=== PATIENT | male | born 1930 | race Caucasian/White ===

== ENCOUNTER 2017-03-21 10:48 | Inpatient (IN) ==
[2017-03-21 11:48] LABS: MANUAL DIFF NEEDED? NO
[2017-03-21 11:55] LABS: BASO% 0.2 % (0.0-0.8); EOS# 0.02 X1000 (0.0-0.7); EOS% 0.2 % (0.0-10.0); HEMATOCRIT 41.5 % (42.0-52.0); HEMOGLOBIN 13.5 g/dL (14.0-18.0); IMM GRAN# 0.02 X1000 (0.0-0.04); IMM GRAN% 0.2 % (0.0-0.5); LYMPH# 1.01 X1000 (1.2-3.4); LYMPH% 8.8 % (20.5-51.1); MCHC 32.5 g/dL (33-37); MCV 95.2 FL (81-99); MONO# 1.04 X1000 (0.11-0.59); MONO% 9.1 % (1.7-9.3); NEUT% 81.5 % (42.2-75.2); PLT 129 X1000 (130-400); RBC 4.36 XMIL (4.7-6.1)
--- NOTE | 2017-03-21 12:10 | Diag Imaging Result Doc PS360 ---
CT HEAD W/O CONTRAST - 03/21/2017 INDICATION: ams TECHNIQUE: A CT dose reduction protocol was used. COMPARISON: 06/03/2016 FINDINGS: The ventricles and sulci are normal in size and contour. No intracranial mass or hemorrhage. Stable mild periventricular white matter hypodensities compatible with chronic microvascular ischemia most notably at the right lateral ventricle frontal horn. The skull is intact. There is significant chronic sinusitis of the maxillary and ethmoid sinuses. IMPRESSION: No change from prior. No acute intracranial abnormality. Electronically signed by Ciro Knight 03/21/2017 12:07 PM
[2017-03-21 12:12] LABS: AGAP 12; ALBUMIN 3.8 g/dL (3.5-5.0); ALKALINE PHOSPHATASE 46 U/L (32-122); BUN 12 mg/dL (8-22); CALCIUM 9.3 mg/dL (8.8-10.2); CHLORIDE 99 mmol/L (98-107); CK PROFILE 54 U/L (24-204); COSMO 276; GOT 22 U/L (10-34); GPT 17 U/L (10-44); POTASSIUM 4.4 mmol/L (3.5-5.1); SODIUM 138 mmol/L (136-145); TCO2 27 mmol/L (25-35); TOTAL BILIRUBIN 0.66 mg/dL (0.20-1.00); TOTAL PROTEIN 6.8 g/dL (6.3-8.3)
--- NOTE | 2017-03-21 12:18 | Diag Imaging Result Doc PS360 ---
EXAM: CHEST-2 VIEWS INDICATION: cough TECHNIQUE: 3 views COMPARISON: 06/02/2016 FINDINGS: The lungs are grossly clear. There is no discrete pleural fluid collection or pneumothorax. The heart is somewhat prominent but stable. There is a stable left-sided pacemaker. Central vasculature is unremarkable. IMPRESSION: Stable cardiomegaly. No definite acute chest pathology by plain radiograph. Electronically signed by Jamar Hernandez 03/21/2017 12:16 PM
[2017-03-21] MEDS ORDERED: TYLENOL PO ONE (12:28)
[2017-03-21] MEDS ORDERED: NS 1,000 ML IV ONE (12:29)
[2017-03-21 13:11] LABS: URINE CULTURE NEEDED? NO; URINE MICRO REVIEW NEEDED? NO; URINE SOURCE CLEAN CATCH
[2017-03-21 13:16] LABS: BILIRUBIN URINE NEGATIVE (NEGATIVE); BLOOD URINE NEGATIVE (NEGATIVE); COLOR YELLOW; GLUCOSE URINE NEGATIVE (NEGATIVE); LEUKOCYTES URINE NEGATIVE (NEGATIVE); NITRITE URINE NEGATIVE (NEGATIVE); PROTEIN URINE NEGATIVE (NEGATIVE); SP GRAVITY URINE 1.008; TURBIDITY URINE CLEAR (CLEAR); UROBILINOGEN URINE NORMAL (NORMAL)
[2017-03-21 13:18] LABS: UR EPITHELIAL CELLS <10 /HPF (<10); URINE BACTERIA NEGATIVE /HPF; URINE RBC <10 /HPF (<10); URINE WBC <10 /HPF (<10)
[2017-03-21] MEDS ORDERED: LASIX IV ONE (14:02)
--- NOTE | 2017-03-21 14:08 | EKG Report ---
Test Performed on : 03/21/2017 10:59:17 AM Test Reason : ED. Not ordered in [place] Blood Pressure : / mmHG Vent. Rate : 096 BPM Atrial Rate : 105 BPM P-R Int : 000 ms QRS Dur : 084 ms QT Int : 326 ms P-R-T Axes : 000 -03 -18 degrees QTc Int : 411 ms Atrial fibrillation. Low voltage QRS Septal infarct , age undetermined Abnormal ECG When compared with ECG of 04-JUN-2016 07:28, Atrial fibrillation. has replaced Electronic ventricular pacemaker Unconfirmed Result
[2017-03-21 15:00] LABS: ALLEN TEST YES; BE 3.9 mmoll (-3.0-3.0); BLOOD TYPE ARTERIAL; DRAW SITE R RADIAL; METHB 1.7 % (0.0-1.5); MODALITY CANNULA; O2(CT) 17.2 mL/dL (15.0-23.0); PCO2(98.6) 38 mmHg (35-45); PO2(98.6) 82 mmHg (60-100); SAMPLE BLOOD; SAO2 97.8 % (95.0-100.0); THB 12.9 g/dL (11.5-17.4); pH(98.6) 7.47 (7.35-7.45)
[2017-03-21] MEDS ORDERED: ROCEPHIN 1 GM in NS 50 ML IV ONE (15:50)
[2017-03-21] MEDS ORDERED: XANAX PO PRN (16:20)
[2017-03-21] MEDS ORDERED: TYLENOL PO PRN (16:20)
[2017-03-21] MEDS ORDERED: ZOFRAN IV PRN (16:20)
[2017-03-21] MEDS: NEURONTIN PO SCH (17:43)
[2017-03-21] MEDS: ELIQUIS PO SCH (21:22)
[2017-03-21] MEDS: ZOCOR PO SCH (21:22)
--- NOTE | 2017-03-22 06:25 | EKG Report ---
Test Performed on : 03/22/2017 05:24:27 AM Test Reason : Heart Failure Admission Blood Pressure : / mmHG Vent. Rate : 082 BPM Atrial Rate : 081 BPM P-R Int : 000 ms QRS Dur : 092 ms QT Int : 394 ms P-R-T Axes : 000 -21 -14 degrees QTc Int : 460 ms Atrial fibrillation. Low voltage QRS Nonspecific T wave abnormality Prolonged QT Abnormal ECG When compared with ECG of 21-MAR-2017 10:59, (Unconfirmed) Criteria for Septal infarct are no longer present T wave inversion less evident in Anterior leads Confirmed by Esperanza HDZ, Nicko Vazquez ([id number]) on 03/22/2017 6:42:13 AM
[2017-03-22 07:00] LABS: MANUAL DIFF NEEDED? NO
[2017-03-22 07:04] LABS: BASO% 0.2 % (0.0-0.8); EOS% 1.2 % (0.0-10.0); HEMATOCRIT 41.8 % (42.0-52.0); HEMOGLOBIN 13.6 g/dL (14.0-18.0); LYMPH% 14.4 % (20.5-51.1); MCH 31.1 PG (27-31); MCHC 32.5 g/dL (33-37); MCV 95.4 FL (81-99); MONO# 0.85 X1000 (0.11-0.59); MONO% 10.2 % (1.7-9.3); MPV 11.2 FL (7.4-10.4); PLT 117 X1000 (130-400); RBC 4.38 XMIL (4.7-6.1)
[2017-03-22 07:29] LABS: AGAP 10; BUN 12 mg/dL (8-22); CALCIUM 9.5 mg/dL (8.8-10.2); CHLORIDE 99 mmol/L (98-107); COSMO 277; DIGOXIN < 0.2 ng/mL (0.9-2.0); MAGNESIUM 1.8 mg/dL (1.5-2.7); POTASSIUM 3.8 mmol/L (3.5-5.1); SODIUM 139 mmol/L (136-145); TCO2 30 mmol/L (25-35)
[2017-03-22 07:47] LABS: FREE T4 1.21 ng/dL (0.93-1.70); PSA SCREEN 0.54 ng/mL (0.00-6.22)
[2017-03-22] MEDS: NEURONTIN PO SCH (08:25)
[2017-03-22] MEDS: LANOXIN PO SCH (08:25)
[2017-03-22] MEDS: HYDROCHLOROTHIAZIDE PO SCH (08:25)
[2017-03-22] MEDS: UROXATRAL PO SCH (08:25)
[2017-03-22] MEDS: ELIQUIS PO SCH ×2 (08:25→22:29)
[2017-03-22] MEDS: CARDIZEM CD PO SCH (08:25)
[2017-03-22] MEDS ORDERED: ROCEPHIN 1 GM in NS 50 ML IV SCH (16:00)
[2017-03-22] MEDS: ZOCOR PO SCH (22:29)
[2017-03-23] MEDS: UROXATRAL PO SCH (09:21)
[2017-03-23] MEDS: CARDIZEM CD PO SCH (09:21)
[2017-03-23] MEDS: LANOXIN PO SCH (09:21)
[2017-03-23] MEDS: ELIQUIS PO SCH (09:21)
[2017-03-23] MEDS: HYDROCHLOROTHIAZIDE PO SCH (09:21)
[2017-03-23 15:12] VITALS: BP 155/83
== END 2017-03-23 15:50 | disposition home or self-care (01) ==
LOC: ED 10:48 → 3N 16:08
PROVIDERS: ATTEND Emergency Medicine

== ENCOUNTER 2019-01-26 07:13 | Inpatient (IN) ==
[2019-01-26] MEDS ORDERED: ASPIRIN PO ONE (07:40)
[2019-01-26] MEDS ORDERED: LASIX IV ONE ×2 (07:44→14:00)
[2019-01-26] MEDS ORDERED: DUONEB (A & A) INH ONE (07:44)
--- NOTE | 2019-01-26 07:47 | EKG Report ---
Test Performed on : 01/26/2019 07:25:07 AM Test Reason : sob Blood Pressure : / mmHG Vent. Rate : 088 BPM Atrial Rate : 057 BPM P-R Int : 000 ms QRS Dur : 092 ms QT Int : 356 ms P-R-T Axes : 000 -38 007 degrees QTc Int : 430 ms Atrial fibrillation. Left axis deviation Septal infarct , age undetermined Abnormal ECG When compared with ECG of 11-JUN-2018 13:03, Atrial fibrillation. has replaced Electronic ventricular pacemaker Unconfirmed Result
--- NOTE | 2019-01-26 07:50 | PROVIDER DOCUMENTATION ---
HPI-General Adult - General Chief Complaint: General Adult Stated Complaint: CP-SOB HEART PATIENT Time Seen by Provider: 01/26/19 07:32 Source: patient, family Allergies/Adverse Reactions: Patient Allergies Allergy/AdvReac Type Severity Reaction Status Date / Time No Known Allergies Allergy Verified 01/26/19 08:31 Home Medications: Home Medication List Medication Instructions Recorded Confirmed Last Taken Type Alfuzosin HCl [Alfuzosin HCl ER] 10 mg PO DAILY 06/23/15 08/08/18 09/22/17 18:00 History SIMVAstatin [Zocor] 20 mg PO QHS 06/23/15 08/08/18 09/22/17 18:00 History Carvedilol [Coreg] 25 mg PO BID 03/26/17 08/08/18 09/22/17 18:00 History Rivaroxaban [Xarelto] 15 mg PO DAILY 06/03/18 08/08/18 Unknown History Loperamide HCl [Loperamide] 2 mg PO DIRECTED #10 cap 08/08/18 Unknown Rx Montelukast Sodium [Singulair] 10 mg PO QAM 08/08/18 08/08/18 Unknown History Tamsulosin [Flomax] 0.4 mg PO DAILY 08/08/18 08/08/18 Unknown History - History of Present Illness -Gen Adult Nature of Presenting Problems: The patient states that he has had sob for a couple of days. He sleeps on two pillows and has a lot of congestion in the mornings. This morning he was very sob and also thought that his heart was racing and skipping. He denies chest pain . Location of Pain/Injury: reports: none Pain Radiation: reports: no radiation Severity: reports: severe Onset/Duration: reports: 1-3 hours ago Timing: reports: still present, getting worse Context/Activities at Onset: reports: light activity, sleep Modifying Factors: improves with: nothing. worse with: breathing, coughing Associated Symptoms: reports: cough, shortness of breath. denies: chest pain, fever/chills Similar Symptoms Previously?: No Recently seen or treated by another doctor?: No Review of Systems - Adult - REVIEW OF SYSTEMS - ADULT Constitutional: reports: no symptoms reported, weight loss Eyes: reports: no symptoms reported Ears, Nose, Mouth & Throat: reports: no symptoms reported Cardiovascular: reports: no symptoms reported Respiratory: reports: no symptoms reported, cough, dyspnea on exertion, shortness of breath, wheezing Gastrointestinal: reports: no symptoms reported Genitourinary: reports: no symptoms reported Musculoskeletal: reports: no symptoms reported Integumentary: reports: no symptoms reported Neurological: reports: no symptoms reported Psychiatric: reports: no symptoms reported Endocrine: reports: no symptoms reported Hematologic/Lymphatic: reports: no symptoms reported Allergic/Immunologic: reports: no symptoms reported All Other Systems: Reviewed and Negative Past History - Adult - PAST MEDICAL HISTORY-ADULT Review of Records: reports: Nursing Assessment Review Major Childhood Illnesses: reports: denies history Cardiovascular: reports: A-Fib, HTN, hyperlipidemia, pacemaker Respiratory: reports: COPD Gastrointestinal: reports: denies history Obstetrical/Gynecological: reports: denies history Genitourinary: reports: denies history Musculoskeletal: reports: denies history Neurological: reports: denies history Psychiatric: reports: anxiety Endocrine/Immune: reports: denies history Other Conditions: reports: denies history - PRIOR SURGERIES/PROCEDURES Surgical/Procedure History: reports: pacemaker - IMMUNIZATION STATUS Childhood Immunizations: See Nurse Assessment Flu Vaccine: See Nurse Assessment - FAMILY HISTORY Family History: reviewed, not pertinent - SOCIAL HISTORY Smoking: denies Physical Exam-General - CONSTITUTIONAL General Appearance: alert, moderate distress - HEAD, EARS, NOSE, MOUTH & THROAT HENMT: normocephalic/atraumatic - RESPIRATORY Respiratory: respiratory distress, rales, wheezing - CARDIOVASCULAR Cardiovascular: regular rate, rhythm - GASTROINTESTINAL (ABDOMEN) Abdominal Exam: non tender, soft - MUSCULOSKELETAL Back Exam: normal inspection Extremity: no pedal edema - SKIN Integumentary: normal color, normal turgor - NEUROLOGIC Neurologic: grossly normal - PSYCHIATRIC Psych/Mental Status: oriented x 3 Progress - PLAN OF CARE/RESULTS Progress/Plan/Lab Results: Vital Signs - 8 hr 01/26/19 07:14 Temperature 97.8 F Pulse Rate 95 H Respiratory Rate 18 Blood Pressure 158/94 O2 Sat by Pulse Oximetry 92 L Orders Category Date Time Status Cardiac Monitoring DIRECTED Care 01/26/19 07:40 Ordered Oxygen Therapy- ED Nursing DIRECTED Care 01/26/19 07:40 Ordered Saline Loc NOW Care 01/26/19 07:40 Ordered CHEST-PORTABLE [RAD] Stat Exams 01/26/19 07:43 Ordered CBC WITH ELECTRONIC DIFF [HEME] Stat Lab 01/26/19 07:40 Uncollected CK PROFILE [SP CHEM] Stat Lab 01/26/19 07:40 Uncollected COMPREHENSIVE METABOLIC PANEL [CHEM] Stat Lab 01/26/19 07:40 Uncollected PRO B-NATRIURETIC PEPTIDE Stat Lab 01/26/19 07:40 Uncollected PROTIME WITH INR [COAG] Stat Lab 01/26/19 07:40 Uncollected PTT [COAG] Stat Lab 01/26/19 07:40 Uncollected TROPONIN T Stat Lab 01/26/19 07:40 Uncollected Albuterol 2.5MG/Ipratrop 0.5MG [Duoneb (A & A)] Med 01/26/19 07:44 Once 3 ml INH NOW ONE Aspirin Med 01/26/19 07:40 Once 325 mg PO NOW ONE Furosemide [Lasix] Med 01/26/19 07:44 Once 40 mg IV NOW ONE Aerosol Treatments Routine Oth 01/26/19 07:44 Ordered Aerosol Treatments Stat Oth 01/26/19 07:44 Ordered CP/SOB/Palp >45 yrs of Age Stat Oth 01/26/19 07:40 Ordered EKG [EKG] Stat Ther 01/26/19 07:40 Ordered Result Diagrams: 01/26/19 07:35 01/26/19 07:35 - EKG 1 Time of EKG reading by physician:: 07:30 EKG Read and Signed by:: [place] EKG Interpretation (*Must complete 3 of following elements*): Abnormal Rate: 88 Rhythm: irregularly irregular [place]: left QRS: Q Waves present - CONSULTS/PCP/HOSPITALIST Notification #1 *Consult/PCP/Hospitalist*: Melia/Garrett Time Discussed: 09:10 Consult Disposition: Will see in ED Departure - Departure Date of Disposition Decision: 01/26/19 Time of Disposition Decision: 09:44 DIAGNOSIS: CHF (congestive heart failure) Disposition: ADMITTED INPATIENT 09 Certified Medical Emergency: Emergent Condition: Good Referrals and Follow-Ups: Taylor Ramachandran MD [Primary Care Provider] - - Critical Care Note This patient required my direct & personal management of CC.: No Attestation - Physician/ ROSA Attestation The physician spent face to face time with patient:: Yes Advanced Practice Provider documentation review:: Supervising physician onsite and consulted in the evaluation and care of this patient. The physician did have a face to face encounter with the patient.
--- NOTE | 2019-01-26 08:09 | Diag Imaging Result Doc PS360 ---
EXAM: CHEST-PORTABLE 01/26/2019 HISTORY: sob TECHNIQUE: AP portable upright at 0754 COMMENT: The heart size is the upper limits of normal. The pulmonary vascularity is slightly prominent. There is some increased interstitial markings which may be in part be due to less optimal inspiration compared to 06/11/2018. IMPRESSION: Questionable pulmonary edema. Electronically signed by Ady Castillo 01/26/2019 8:06 AM
[2019-01-26 08:38] LABS: BASO# 0.02 X1000 (0.0-0.2); BASO% 0.2 % (0.0-0.8); EOS# 0.58 X1000 (0.0-0.7); EOS% 7.1 % (0.0-10.0); HEMATOCRIT 47.6 % (42.0-52.0); HEMOGLOBIN 15.2 g/dL (14.0-18.0); MCH 30.3 PG (27-31); MCHC 31.9 g/dL (33-37); MCV 94.8 FL (81-99); MONO# 0.65 X1000 (0.11-0.59); MONO% 7.9 % (1.7-9.3); MPV 12.9 FL (7.4-10.4); NEUT# 6.03 X1000 (1.4-6.5); NEUT% 73.8 % (42.2-75.2); PLT 94 X1000 (130-400); RBC 5.02 XMIL (4.7-6.1); RDW 14.1 % (11.5-14.5); WBC 8.18 X1000 (4.8-10.8)
[2019-01-26 08:42] LABS: INR 1.41; PROTIME 17.5 Seconds (11.0-16.0)
[2019-01-26 08:43] LABS: PTT 42.7 Seconds (22.3-41.8)
[2019-01-26 08:55] LABS: AGAP 14; ALB/GLOB RATIO 1.7; ALBUMIN 4.9 g/dL (3.5-5.0); ALKALINE PHOSPHATASE 56 U/L (32-122); BUN 15 mg/dL (8-22); CALCIUM 9.7 mg/dL (8.8-10.2); CHLORIDE 105 mmol/L (98-107); CK PROFILE 106 U/L (24-204); COSMO 290; CREATININE 1.1 mg/dL (0.7-1.2); ESTIMATED GFR > 60; GLUCOSE 104 mg/dL (70-104); GOT 38 U/L (10-34); GPT 22 U/L (10-44); POTASSIUM 5.5 mmol/L (3.5-5.1); SODIUM 145 mmol/L (136-145); TCO2 26 mmol/L (25-35); TOTAL BILIRUBIN 0.66 mg/dL (0.20-1.00); TOTAL PROTEIN 7.8 g/dL (6.3-8.3)
[2019-01-26] MEDS ORDERED: ZOFRAN IV PRN (09:54)
[2019-01-26] MEDS ORDERED: TYLENOL PO PRN (09:54)
[2019-01-26] MEDS ORDERED: UROXATRAL PO SCH (10:00)
--- NOTE | 2019-01-26 10:14 | PROGRESS NOTE ---
DATE: 01/26/2019 ADDENDUM: He is in atrial fibrillation. Rate is controlled. Blood pressure was 158/94. It looks like he is in chronic atrial fibrillation. He is already on Xarelto. He is taking Coreg 25 mg twice a day at the present time. The Xarelto he is on is 15 mg daily. Not sure if that needs to be adjusted down to 10. cc: Nicko Mata MD
--- NOTE | 2019-01-26 10:19 | HISTORY AND PHYSICAL ---
DATE: 01/26/2019 SUBJECTIVE: He is followed by Dr. Taylor Ramachandran. This is an 88-year-old. His states that for the last couple of days, he has had more wheezing, seemed to have more increased work of breathing, and that is what bothered her and brought him to the emergency room. He reports that one of his concerns is that he is not able to void very good. He just has a couple of drops, and not urinating, and uncomfortable, and he points to his penis. He denies fever or chills. I do not hear any report of paroxysmal nocturnal dyspnea. It is difficult to tell if he has true orthopnea, but he did admit that he was having some shortness of breath. No pleuritic pain. No chest pain. PAST MEDICAL HISTORY: 1. Hypertension. 2. COPD. 3. Congestive heart failure. 4. Chronic atrial fibrillation. PAST SURGICAL HISTORY: 1. Pacemaker placement. 2. Prostatectomy. 3. Hernia repair. 4. Cholecystectomy. 5. Appendectomy. ALLERGIES: No known drug allergies. SOCIAL HISTORY: No history of smoking, alcohol, or illicit drugs. FAMILY HISTORY: Positive for coronary artery disease in mother. REVIEW OF SYSTEMS: General: No weight gain or loss. No fever or chills. HEENT: Unremarkable. Respiratory: He has had increased work of breathing and wheezing in the last 2 or 3 days that seems to be progressing, but his states that it has kind of come off and on for the last couple of weeks. Gastrointestinal and Genitourinary: No gross hematuria or dysuria. Musculoskeletal/Neurologic: No significant complaints. Endocrinologic/Hematologic: No significant history. PHYSICAL EXAMINATION: Vital Signs: Temperature 97.8 degrees, pulse 84, respirations 16, blood pressure 158/94. HEENT: Pupils are equal and round. Lungs: Clear in all lung [place]. He did have end expiratory wheezing throughout, but he was able to carry on conversations. There were no distended neck veins. CVP less than 6 cm. Abdomen: Soft, nondistended. He complains of pain, and I asked him if it is in his penis, and that seems to be where he is uncomfortable. I think he is more uncomfortable because he does not feel like he can void. He has only has a couple drops. Endocrinologic/Hematologic: No significant history. IMAGING AND LABORATORY DATA: White count 8180, hematocrit 47, platelet count 94,000. Sodium 145, potassium 5.5, chloride 105, BUN 14, creatinine 1.1. AST 38, ALT 22, alkaline phosphatase 56. ProTime is 17.5, INR is 1.41, PTT is 42. Chest x-ray: Questionable pulmonary edema. Pulmonary vasculature is slightly prominent, consistent with pulmonary venous hypertension. His proBNP is 3427. HOME MEDICATIONS: He is on alfuzosin 10 mg daily, Coreg 25 mg b.i.d., loperamide 2 mg as needed, Singulair 10 mg every a.m., Xarelto 15 mg daily, Zocor 20 mg at bedtime, and Flomax 0.4 mg daily. ASSESSMENT AND PLAN: 1. Pulmonary venous hypertension. Echocardiogram done in 05/2018 showed mildly impaired left ventricular systolic function, ejection fraction 45% to 50%. There is impairment of the inferior wall and the septum. Mild degree of aortic regurgitation. Trivial degree of mitral and tricuspid regurgitation. Pulmonary pressure is about 30 mmHg. Diastolic function appeared to be normal at that time. The atria are mildly enlarged. I am going to try and diurese him a little bit. ProBNP is high, and chest x-ray and exam suggest pulmonary venous hypertension, and he has some significant bronchospasm. Will put him on DuoNeb every 4 hours while awake. Will put him on Lasix 40 mg intravenously, and I am going to do that every 12 hours. We will get Cardiology involved. We will follow his electrolytes, magnesium, and potassium. 2. Suspect benign prostatic hypertrophy and trouble with voiding. Will ask Dr. Terrence Lewis, who is his urologist, to look. He is on Flomax right now. He is taking alfuzosin 10 mg daily. Will continue that. Will continue the Flomax, but will go up on Flomax to 0.4 mg twice a day. I will ask Cardiology to get involved. I note that he is on Xarelto. The could not really tell me why he is on Xarelto, but I presume it is chronic atrial fibrillation. Will ask Cardiology to evaluate as well. I do not know if they want to re-evaluate his left ventricular function. We will also put him on a steroid inhaler. Will use Advair 250/50 one puff twice a day. I think we probably ought to check another set of CK and troponin in the morning. We will check his thyroid function, T4, TSH, B12, and folate. cc: Nicko Mata MD
[2019-01-26 10:23] LABS: URINE SOURCE CLEAN CATCH
[2019-01-26 10:30] LABS: BILIRUBIN URINE NEGATIVE (NEGATIVE); BLOOD URINE NEGATIVE (NEGATIVE); COLOR STRAW; GLUCOSE URINE NEGATIVE (NEGATIVE); KETONE URINE NEGATIVE (NEGATIVE); LEUKOCYTES URINE NEGATIVE (NEGATIVE); NITRITE URINE NEGATIVE (NEGATIVE); PROTEIN URINE NEGATIVE (NEGATIVE); SP GRAVITY URINE 1.007; TURBIDITY URINE CLEAR (CLEAR); UR EPITHELIAL CELLS <10 /HPF (<10); URINE BACTERIA NEGATIVE /HPF; URINE RBC <10 /HPF (<10); URINE WBC <10 /HPF (<10); UROBILINOGEN URINE NORMAL (NORMAL)
--- NOTE | 2019-01-26 11:40 | CARDIOLOGY CONSULTATION ---
DATE: 01/26/2019 REASON FOR CONSULTATION: Cardiology was consulted for heart failure. HISTORY OF PRESENT ILLNESS: Mr. Derad Godoy is an 88-year-old gentleman with history of atrial fibrillation, permanent pacemaker implantation, cardiomyopathy, history of heart failure, COPD. Comes with complaints of increasing shortness of breath associated with fatigue. He was noted to have some paroxysmal nocturnal dyspnea, became orthopneic, brought to the emergency room, was given Lasix. The patient denies any chest pain or palpitations. There is no history of syncope. He complains of having some lower abdominal hypochondrium discomfort. Had needed straight cath to empty his bladder. Urology has been consulted. From a cardiac standpoint, he has been taking his medications regularly. REVIEW OF SYSTEMS: Cardiovascular System: As above. Genitourinary: As above. Respiratory: There is no history of fevers. There is no history of cough or hemoptysis. Endocrine System: Stable. PAST MEDICAL HISTORY: 1. Atrial fibrillation. 2. Permanent pacemaker [employer] device. Generator change on 06/24/2015. 3. Cardiomyopathy. 4. Congestive heart failure. 5. COPD on home oxygen. 6. Aortic insufficiency. 7. Hypertension. 8. Confusion in the past. CURRENT MEDICATIONS: 1. Coreg 25 b.i.d. 2. Zocor 20. 3. Xarelto 15. 4. Singulair 10. 5. Xanax as needed. PHYSICAL EXAMINATION: Vital Signs: Blood pressure was 120/80. Respiratory system: Scattered bilateral expiratory wheeze and inspiratory crepitations. Abdomen: Soft. There was no guarding or rigidity. Bowel sounds were heard. Central nervous system: Alert and oriented, was moving all 4 extremities. Extremities: Revealed no pedal edema. Cardiovascular system: First and second heart sounds were heard. There was faint murmur. ASSESSMENT AND PLAN: Mr. Dread Godoy is an 88-year-old gentleman with history of atrial fibrillation, on anticoagulation therapy, permanent pacemaker implantation, chronic obstructive pulmonary disease and heart failure. He comes in with complaints of increasing shortness of breath, paroxysmal nocturnal dyspnea and orthopnea. The patient was in heart failure. Clinically, he has improved significantly. RECOMMENDATIONS: 1. From a cardiac standpoint, we will get an echocardiogram to assess cardiac and valvular function, continue with his Coreg, and he is on Lasix 40 mg IV twice daily. We will decrease it to Lasix 40 mg a day and at discharge, he would need Lasix at least 20 to 40 mg daily as a tablet. 2. Hypertension, cardiomyopathy. Continue with Coreg. 3. Hyperlipidemia. Continue with Zocor. 4. He has atrial fibrillation. No bleeding diatheses. Continue with Xarelto. 5. Chronic obstructive pulmonary disease and has home oxygen therapy, is not on any inhalers at the present time. He will benefit from nebulizers and would recommend continuing the same. Thank you for the consult. cc: Ameya Ly MD
[2019-01-26] MEDS: DUONEB (A & A) INH SCH ×4 (11:42→23:17)
[2019-01-26] MEDS: XARELTO PO SCH (13:13)
[2019-01-26] MEDS: COREG PO SCH ×2 (13:13→20:01)
[2019-01-26] MEDS: FLOMAX PO SCH ×2 (13:13→20:01)
--- NOTE | 2019-01-26 13:25 | ECHO REPORT ---
ORDER DATE: 01/26/2019 INDICATION: Shortness of breath, CHF. FINDINGS: 1. Right atrium appears normal in size. Linear echodensity consistent with device leads is seen in the right heart chambers. 2. Mild tricuspid regurgitation. RV systolic pressure of 40. 3. Normal RV size and systolic function. 4. Trace pulmonic insufficiency. 5. Mild left atrial enlargement with a dimension of 4.5 cm. 6. No mitral valve prolapse. Mild mitral regurgitation. 7. Normal LV size, end-diastolic dimension of 4.1. Mild left ventricular hypertrophy with a posterior and interventricular septal wall thickness of 1.3 cm each. The LV systolic function is borderline normal to mildly reduced with an estimated EF of 45% to 50%. Endocardial borders are difficult to visualize. Overall this ejection fraction appears relatively stable compared to a study in 05/2018. No obvious segmental wall motion abnormalities. 8. Aortic valve opens well. It has mild insufficiency. No stenosis. 9. Aorta appears normal in visualized segments. 10. No pericardial effusion seen. cc: MD Ronda Wills CRNP
[2019-01-26 15:33] LABS: BILIRUBIN URINE NEGATIVE (NEGATIVE); BLOOD URINE NEGATIVE (NEGATIVE); COLOR STRAW; GLUCOSE URINE NEGATIVE (NEGATIVE); KETONE URINE NEGATIVE (NEGATIVE); LEUKOCYTES URINE NEGATIVE (NEGATIVE); NITRITE URINE NEGATIVE (NEGATIVE); PROTEIN URINE NEGATIVE (NEGATIVE); SP GRAVITY URINE 1.006; TURBIDITY URINE CLEAR (CLEAR); URINE SOURCE CATH; UROBILINOGEN URINE NORMAL (NORMAL)
[2019-01-26 15:35] LABS: UR EPITHELIAL CELLS <10 /HPF (<10); URINE BACTERIA NEGATIVE /HPF; URINE RBC <10 /HPF (<10); URINE WBC <10 /HPF (<10)
[2019-01-26] MEDS: ADVAIR 250/50 DISKUS INH SCH (19:38)
[2019-01-26] MEDS: ZOCOR PO SCH (20:01)
--- NOTE | 2019-01-26 20:08 | CONSULTATION ---
DATE OF CONSULTATION: 01/26/2019 ATTENDING AND REFERRING PHYSICIAN: Hospitalist. HISTORY OF PRESENT ILLNESS: This 88-year-old male has been followed in the Urology Clinic for greater than 10 years. He is admitted today for exacerbation of congestive heart failure, COPD and atrial fibrillation. The patient states he has been having double voiding and urgency. The patient has a long history of irritative voiding symptoms. His last cystoscopic exam in July 2018 revealed an open channel and a trabeculated bladder. His PSA in Jul 29 was 0.74. The patient was on Uroxatral 10 mg a day. The patient denies any hematuria. He had a Javier catheter placed earlier today, and he states he still has some hip pains, but overall it does feel better. PAST MEDICAL HISTORY: 1. Atrial fibrillation. 2. Hypertension. 3. COPD. 4. History of congestive heart failure. CURRENT MEDICATIONS: Documented on the chart. PAST SURGICAL HISTORY: 1. Pacemaker placement. 2. Open simple prostatectomy in 2005. 3. Left inguinal hernia repair. 4. Cholecystectomy 5. Appendectomy. SOCIAL HISTORY: No recent tobacco or alcohol use. ALLERGIES: No known drug allergies. He states he has been having increasing problems walking out to the mailbox. He states he just does not feel like doing it. He states he gets short of breath very quickly. He denies any problems with diabetes, strokes, or seizures. PHYSICAL EXAMINATION: General: A very thin, age apparent, normally developed, white male, who is cooperative. HEENT: Normal for age. Lungs: Clear, but distant breath sounds. Cardiovascular: Irregular rate and rhythm. Abdomen: Mildly protuberant, soft, nontender. No hepatosplenomegaly or masses. Normal bowel sounds. : Uncircumcised male with Javier catheter in place. Both testes are down. He has a right inguinal hernia. Rectal: Normal sphincter tone. Prostate reveals a defect at the base in the midline, consistent with his previous prostate surgery, and the right lobe area is firm, but this is unchanged for the last several years. Extremities: No clubbing, cyanosis, or edema. Neurologic: No focal deficits. LABORATORY EVALUATION: He has a white count of 8.18, hemoglobin 15.2, hematocrit of 47.6, and platelets are 94,000. Serum electrolytes have a sodium of 145, potassium 5.5, chloride 105, bicarb 26, BUN 15, creatinine 1.1. IMPRESSION: 1. Mildly enlarged prostate with some obstructive voiding. 2. Irritative voiding symptoms. 3. Exacerbation of chronic obstructive pulmonary disease. 4. Atrial fibrillation. 5. Right inguinal hernia. RECOMMEND: 1. Stop Uroxatral and stay on Flomax 0.4 mg b.i.d. 2. After he has recovered and is feeling better, will schedule cystoscopic exam in the office. Thank you for this consultation. cc: Dima Lewis MD MTD
[2019-01-26] MEDS ORDERED: LASIX IV SCH (21:00)
[2019-01-27] MEDS: DUONEB (A & A) INH SCH ×6 (04:59→22:43)
--- NOTE | 2019-01-27 07:07 | EKG Report ---
Test Performed on : 01/27/2019 06:59:52 AM Test Reason : afib Blood Pressure : / mmHG Vent. Rate : 095 BPM Atrial Rate : 102 BPM P-R Int : 000 ms QRS Dur : 096 ms QT Int : 376 ms P-R-T Axes : 000 -14 -29 degrees QTc Int : 472 ms Atrial fibrillation. Septal infarct , age undetermined Abnormal ECG Confirmed by Lauren Ceja MD ([id number]) on 01/27/2019 12:07:22 PM
[2019-01-27 07:51] LABS: BASO# 0.02 X1000 (0.0-0.2); BASO% 0.2 % (0.0-0.8); EOS# 0.38 X1000 (0.0-0.7); EOS% 4.5 % (0.0-10.0); HEMATOCRIT 47.4 % (42.0-52.0); HEMOGLOBIN 15.5 g/dL (14.0-18.0); LYMPH# 1.59 X1000 (1.2-3.4); LYMPH% 18.9 % (20.5-51.1); MCH 30.2 PG (27-31); MCHC 32.7 g/dL (33-37); MCV 92.4 FL (81-99); MONO# 0.78 X1000 (0.11-0.59); MONO% 9.3 % (1.7-9.3); MPV 12.6 FL (7.4-10.4); NEUT# 5.64 X1000 (1.4-6.5); NEUT% 67.1 % (42.2-75.2); PLT 111 X1000 (130-400); RBC 5.13 XMIL (4.7-6.1); RDW 13.9 % (11.5-14.5); WBC 8.41 X1000 (4.8-10.8)
[2019-01-27 07:54] LABS: INR 1.79; PROTIME 21.2 Seconds (11.0-16.0)
[2019-01-27 07:55] LABS: PTT 51.1 Seconds (22.3-41.8)
[2019-01-27] MEDS: ADVAIR 250/50 DISKUS INH SCH ×2 (08:12→19:01)
[2019-01-27 08:17] LABS: AGAP 12; ALB/GLOB RATIO 1.4; ALBUMIN 4.5 g/dL (3.5-5.0); ALKALINE PHOSPHATASE 63 U/L (32-122); BUN 21 mg/dL (8-22); CALCIUM 9.9 mg/dL (8.8-10.2); CHLORIDE 97 mmol/L (98-107); CK TOTAL 62 U/L (24-204); COSMO 282; ESTIMATED GFR > 60; GLUCOSE 94 mg/dL (70-104); GOT 25 U/L (10-34); GPT 22 U/L (10-44); MAGNESIUM 1.8 mg/dL (1.5-2.7); POTASSIUM 3.5 mmol/L (3.5-5.1); SODIUM 140 mmol/L (136-145); TCO2 31 mmol/L (25-35); TOTAL BILIRUBIN 0.94 mg/dL (0.20-1.00); TOTAL PROTEIN 7.8 g/dL (6.3-8.3)
--- NOTE | 2019-01-27 09:15 | Diag Imaging Result Doc PS360 ---
EXAM: CHEST-2 VIEWS HISTORY: chf TECHNIQUE: Chest two views COMPARISON: 01/26/2019 FINDINGS: The lungs are well expanded. The heart is not enlarged. Left-sided pacemaker The vessels are not distended. There are no infiltrates. No pleural effusions. IMPRESSION: No pulmonary edema on the current exam. Electronically signed by Ridge Martinez 01/27/2019 9:12 AM
[2019-01-27] MEDS: XARELTO PO SCH (09:23)
[2019-01-27] MEDS: COREG PO SCH ×2 (09:23→21:28)
[2019-01-27] MEDS: SINGULAIR PO SCH (09:23)
[2019-01-27] MEDS: LASIX IV SCH (09:23)
[2019-01-27] MEDS: FLOMAX PO SCH ×2 (09:23→21:28)
[2019-01-27] MEDS: LACTULOSE PO SCH ×2 (15:00→21:28)
--- NOTE | 2019-01-27 18:24 | PROGRESS NOTE ---
DATE: 01/27/2019 SUBJECTIVE: The patient is resting comfortably in bed. He had trouble with urinating yesterday, and a Javier catheter was placed. OBJECTIVE: Vital Signs: Temperature 97.5 degrees, blood pressure 142/79, heart rate 98, respirations 24, O2 saturation is 99% on room air. General: This is a chronically ill-appearing elderly male, lying in bed in no acute distress. Heart: S1, S2 normal. Lungs: Equal air entry bilaterally. No wheezing. No rales. Abdomen: Positive bowel sounds. Soft, nontender, nondistended. Extremities: No edema, no cyanosis. Neurologic: The patient is alert and oriented x2. DIAGNOSTIC STUDIES: White blood cell count 8.4, hemoglobin 15, hematocrit 47, platelets 111,000. Sodium 140, potassium 3.5, chloride 97, CO2 of 31, BUN 21, creatinine 1, glucose 94. Troponin negative x2. ASSESSMENT AND PLAN: 1. Acute on chronic diastolic congestive heart failure exacerbation, improved. The patient is on room air. He has no peripheral edema. We will continue on diuretic therapy as directed by the cardiologists. 2. Atrial fibrillation. Rate controlled. He will continue on Coreg and Xarelto. 3. Urinary retention with BPH. Continue on Flomax. 4. Constipation. We will start the patient on scheduled laxative therapy. 5. Chronic thrombocytopenia. Stable. 6. We will consult Physical Therapy. cc: Shandra Cedeño MD
[2019-01-27] MEDS: MIRALAX PO SCH (21:28)
[2019-01-27] MEDS: ZOCOR PO SCH (21:28)
[2019-01-28] MEDS: DUONEB (A & A) INH SCH ×4 (06:27→15:14)
[2019-01-28 07:29] LABS: MCHC 33.3 g/dL (33-37); MPV 12.9 FL (7.4-10.4); RBC 5.16 XMIL (4.7-6.1); WBC 7.7 X1000 (4.8-10.8)
[2019-01-28 07:42] LABS: CALCIUM 10.2 mg/dL (8.8-10.2); CREATININE 1.2 mg/dL (0.7-1.2); POTASSIUM 3.7 mmol/L (3.5-5.1)
[2019-01-28 08:05] VITALS: BP 136/93
[2019-01-28] MEDS: ADVAIR 250/50 DISKUS INH SCH (08:22)
[2019-01-28] MEDS: FLOMAX PO SCH (09:55)
[2019-01-28] MEDS: XARELTO PO SCH (09:55)
[2019-01-28] MEDS: COREG PO SCH (09:55)
[2019-01-28] MEDS: LASIX IV SCH (09:55)
[2019-01-28] MEDS: SINGULAIR PO SCH (09:55)
[2019-01-28] MEDS: LACTULOSE PO SCH (09:55)
[2019-01-28] MEDS: MIRALAX PO SCH (09:56)
--- NOTE | 2019-01-30 05:14 | DISCHARGE SUMMARY ---
ADMISSION DATE: 01/26/2019 DISCHARGE DATE: 01/28/2019 FINAL DISCHARGE DIAGNOSES: 1. Acute systolic congestive heart failure exacerbation. 2. Urinary retention secondary to benign prostatic hypertrophy. 3. Atrial fibrillation. 4. Constipation. 5. Chronic thrombocytopenia. 6. Hyperlipidemia. 7. Anxiety disorder. 8. Hypertension. CONSULTATIONS: 1. Cardiology consultation with Dr. Ly. 2. Urology consultation with Dr. Leiws. HOSPITAL COURSE: Mr. Godoy is an 88-year-old male with a history of multiple medical problems who presented to the ER with a chief complaint of shortness of breath and volume overload. On admission, the patient was noted to have a proBNP of 3427. A chest x-ray was done in the ER that revealed pulmonary edema. The patient was admitted to the hospitalist service. The patient was started on IV Lasix and Cardiology was consulted. An echocardiogram was performed which revealed an ejection fraction of 45 to 50 percent. The patient responded well to diuretic therapy. The patient was noted to have difficulty urinating, and so urology was consulted, and a Javier catheter was placed. The patient is already on Flomax and the Flomax dosage was increased to 0.4 mg twice a day by Dr. Lewis. The patient's urinary symptoms improved with the increase in dosage of the Flomax. The patient was also seen by physical therapy, and was able to ambulate with minimal assistance. The patient continued to improve clinically, and was ultimately cleared for discharge home on 01/28/2019. DISCHARGE MEDICATIONS: 1. Flomax 0.4 mg oral twice a day. 2. Lasix 40 mg p.o. daily. 3. MiraLAX 17 g oral daily. 4. Zocor 20 mg oral at bedtime. 5. Coreg 25 mg oral twice a day. 6. Xarelto 15 mg oral daily. 7. Singulair 10 mg oral every morning. 8. Xanax 2 mg oral at bedtime. 9. Xanax 0.5 mg oral in the morning. DISCHARGE DIET: Low-sodium low-cholesterol diet. ACTIVITY: As tolerated. FOLLOWUP INSTRUCTIONS: The patient will need to follow up with Dr. Lewis in 1 week. The patient will also need to follow up with Dr. Ceron in 1 to 2 weeks. cc: Shandra Cedeño MD
== END 2019-01-28 15:18 | disposition home health service (06) | DRG 293 ==
LOC: ED 07:13 → SUATTDRO 10:08 → 1N 10:08
PROVIDERS: ATTEND Internal Medicine

== ENCOUNTER 2019-09-12 18:23 | Inpatient (IN) ==
[2019-09-12] MEDS ORDERED: NS 1,000 ML IV ONE (19:25)
[2019-09-12] MEDS ORDERED: XANAX PO ONE (19:36)
[2019-09-12 19:55] LABS: BASO# 0.01 X1000 (0.0-0.2); BASO% 0.1 % (0.0-0.8); EOS# 0.12 X1000 (0.0-0.7); EOS% 1.2 % (0.0-10.0); HEMATOCRIT 30.2 % (42.0-52.0); HEMOGLOBIN 9.7 g/dL (14.0-18.0); LYMPH# 1.03 X1000 (1.2-3.4); LYMPH% 9.9 % (20.5-51.1); MCH 31.4 PG (27-31); MCHC 32.1 g/dL (33-37); MCV 97.7 FL (81-99); MONO# 1.23 X1000 (0.11-0.59); MONO% 11.8 % (1.7-9.3); MPV 11.8 FL (7.4-10.4); NEUT# 8.04 X1000 (1.4-6.5); PLT 137 X1000 (130-400); RBC 3.09 XMIL (4.7-6.1); RDW 13.4 % (11.5-14.5); WBC 10.43 X1000 (4.8-10.8)
[2019-09-12 20:21] LABS: ALB/GLOB RATIO 1.1; ALBUMIN 3.7 g/dL (3.5-5.0); CALCIUM 9.1 mg/dL (8.8-10.2); CREATININE 1.3 mg/dL (0.7-1.2); POTASSIUM 3.9 mmol/L (3.5-5.1); TOTAL BILIRUBIN 0.83 mg/dL (0.20-1.00)
[2019-09-12] MEDS ORDERED: ROCEPHIN 1 GM in NS 50 ML IV ONE (20:48)
--- NOTE | 2019-09-12 20:49 | PROVIDER DOCUMENTATION ---
This chart was entered by Aleah Singh Scribe, acting as scribe for Ilsa Dwyer CRNP. HPI-General Adult - General Chief Complaint: Male Stated Complaint: CUT HIS CATHETER OFF Time Seen by Provider: 09/12/19 18:56 Source: patient, family Allergies/Adverse Reactions: Patient Allergies Allergy/AdvReac Type Severity Reaction Status Date / Time No Known Allergies Allergy Verified 09/12/19 03:12 Home Medications: Home Medication List Medication Instructions Recorded Confirmed Last Taken Type SIMVAstatin [Zocor] 20 mg PO QHS 06/23/15 01/26/19 09/22/17 18:00 History Carvedilol [Coreg] 25 mg PO BID 03/26/17 01/26/19 09/22/17 18:00 History Rivaroxaban [Xarelto] 15 mg PO DAILY 06/03/18 01/26/19 Unknown History Montelukast Sodium [Singulair] 10 mg PO QAM 08/08/18 01/26/19 Unknown History Alprazolam [Xanax] 0.5 mg PO QAM 01/26/19 01/26/19 Unknown History Alprazolam [Xanax] 2 tab PO QHS 01/26/19 01/26/19 Unknown History Furosemide [Lasix] 40 mg PO DAILY #30 tab 01/28/19 Unknown Rx Polyethylene Glycol 3350 [Miralax] 17 gm PO DAILY #30 powder, packet 01/28/19 Unknown Rx Tamsulosin [Flomax] 0.4 mg PO BID #60 cap 01/28/19 Unknown Rx CefDINIR [Omnicef] 300 mg PO BID #20 cap 09/05/19 Unknown Rx Ciprofloxacin HCl [Cipro] 500 mg PO BID #14 tab 09/12/19 Unknown Rx - History of Present Illness -Gen Adult Nature of Presenting Problems: pt is a 88 yr old male presenting from home after cutting his catheter tubing with scissors. catheter remains intact. pt was seen here this AM for catheter replacement after accidentaly pulling it out. family reports pt is more confused than normal. Location of Pain/Injury: reports: genitalia Quality of Pain: reports: none Onset/Duration: reports: this evening Timing: reports: still present Context/Activities at Onset: reports: light activity Modifying Factors: improves with: nothing Associated Symptoms: reports: denies symptoms Similar Symptoms Previously?: Yes Recently seen or treated by another doctor?: Yes Review of Systems - Adult - REVIEW OF SYSTEMS - ADULT Constitutional: reports: no symptoms reported Eyes: reports: no symptoms reported Ears, Nose, Mouth & Throat: reports: no symptoms reported Cardiovascular: reports: no symptoms reported Respiratory: reports: no symptoms reported Gastrointestinal: reports: no symptoms reported Genitourinary: reports: other (catheter cut) Musculoskeletal: reports: no symptoms reported Integumentary: reports: no symptoms reported Neurological: reports: no symptoms reported Psychiatric: reports: no symptoms reported Endocrine: reports: no symptoms reported Hematologic/Lymphatic: reports: no symptoms reported Allergic/Immunologic: reports: no symptoms reported All Other Systems: Reviewed and Negative Past History - Adult - PAST MEDICAL HISTORY-ADULT Review of Records: reports: Old Records Reviewed, Nursing Assessment Review, Medications Reviewed, Social history reviewed & non-contributory. Major Childhood Illnesses: reports: denies history Cardiovascular: reports: A-Fib, HTN, hyperlipidemia, pacemaker Respiratory: reports: COPD Gastrointestinal: reports: denies history Obstetrical/Gynecological: reports: denies history Genitourinary: reports: denies history Musculoskeletal: reports: denies history Neurological: reports: denies history Psychiatric: reports: anxiety Endocrine/Immune: reports: denies history Other Conditions: reports: denies history - PRIOR SURGERIES/PROCEDURES Surgical/Procedure History: reports: pacemaker - IMMUNIZATION STATUS Childhood Immunizations: See Nurse Assessment Flu Vaccine: See Nurse Assessment - FAMILY HISTORY Family History: reviewed, not pertinent - SOCIAL HISTORY Living Situation: family Physical Exam-General - PHYSICAL EXAM-ADULT Initial Vital Signs Reviewed: Yes - CONSTITUTIONAL General Appearance: appears well, alert, no apparent distress - EYES Eyes: PERRL/EOMI - HEAD, EARS, NOSE, MOUTH & THROAT HENMT: normocephalic/atraumatic, moist mucous membranes - NECK Neck: non-tender, full range of motion, supple, normal inspection - RESPIRATORY Respiratory: chest non-tender, lungs clear, normal breath sounds, other (hypoxic-89%- 94% after 2l NC) - CARDIOVASCULAR Cardiovascular: normal peripheral pulses, regular rate, rhythm, other (hypotensi ve-82/44) - GASTROINTESTINAL (ABDOMEN) Abdominal Exam: normal bowel sounds, non tender, soft - GENITOURINARY Male Genitalia: other (catherter tubing cut at clear plastic) - LYMPHATIC Lymphatic: no adenopathy - MUSCULOSKELETAL Back Exam: normal inspection Extremity: normal range of motion, non-tender, normal inspection - SKIN Integumentary: normal color, normal turgor, warm/dry - NEUROLOGIC Neurologic: grossly normal, no motor/sensory deficits - PSYCHIATRIC Psych/Mental Status: other (A&O x1-self) Progress - PLAN OF CARE/RESULTS Progress/Plan/Lab Results: Vital Signs - 8 hr 09/12/19 18:43 Temperature 99.2 F Pulse Rate 94 H Respiratory Rate 16 Blood Pressure 82/44 O2 Sat by Pulse Oximetry 99 Orders Category Date Time Status NEWS Score 2-4:Order NEWS Lactate Series NOW Care 09/12/19 18:48 Active Saline Loc NOW Care 09/12/19 18:57 Active CBC WITH ELECTRONIC DIFF [HEME] Stat Lab 09/12/19 18:56 Uncollected COMPREHENSIVE METABOLIC PANEL [CHEM] Stat Lab 09/12/19 18:57 Uncollected LACTATE, PLASMA [CHEM] Q3H Lab 09/12/19 19:00 Uncollected LACTATE, PLASMA [CHEM] Q3H Lab 09/12/19 22:00 Uncollected LACTATE, PLASMA [CHEM] Q3H Lab 09/13/19 01:00 Uncollected Result Diagrams: 09/12/19 19:27 09/12/19 19:27 - REASSESSMENT Reassessment #1 Time Reassessed: 19:37 Status: unchanged (pt is pulling catheter and lines, soft restraints ordered for safetly. BP improved xanax ordered) - CONSULTS/PCP/HOSPITALIST Notification #1 *Consult/PCP/Hospitalist*: Dr. Pichardo Time Discussed: 20:49 Consult Disposition: Admit Departure - Departure Date of Disposition Decision: 09/12/19 Time of Disposition Decision: 20:49 DIAGNOSIS: UTI (urinary tract infection), Javier catheter problem, AMS (altered mental status), Hypotension, Dementia with behavioral disturbance Disposition: ADMITTED INPATIENT 09 Certified Medical Emergency: Emergent Condition: Stable Referrals and Follow-Ups: None,PCP [Primary Care Provider] - - Critical Care Note This patient required my direct & personal management of CC.: No Attestation - Physician/ ROSA Attestation Patient care was provided by Advanced Practice Provider:: Yes Advanced Practice Provider:: Ilsa Dwyer Advanced Practice Provider documentation review:: The Mid-level provider documentation, treatment plan and medical decision making was reviewed by the physician who agrees with all treatment and medical decision making by the MLP. The physician spent face to face time with patient:: No Advanced Practice Provider documentation review:: Supervising physician onsite and consulted in the evaluation and care of this patient. The physician did not have a face to face encounter with the patient. This chart was documented by the indicated scribe, (Aleah Singh, Jazmine) and accurately reflects the services I performed and decisions made by Reymundo ackerman Brittany M., CRNP, as attested by the provider's signature.
--- NOTE | 2019-09-13 02:26 | HISTORY AND PHYSICAL ---
CHIEF COMPLAINT: Altered mental status. HISTORY OF PRESENTING COMPLAINT: The patient is an 88-year-old with history of hypertension, BPH on a Javier catheter, atrial fibrillation, COPD status post permanent pacemaker inserted and heart failure, who presents with confusion. The patient has had very frequent hospital visits recently. Today, this is the 2nd time the patient has come into the ER. Earlier in the day, patient came because he was altered and was pulling on his catheter and he came to the ER and was discharged from the ER. At that time he was noted to have an UTI and he was prescribed ciprofloxacin. Same day patient came back again because family said the patient was more confused than normal and in the ER the patient had a fall. He has had a CT head done that was negative. The patient is still altered. At the time I saw the patient, I could not get any information from patient as he was incoherent and was not giving appropriate answers to questions. There is a possibility the patient has baseline dementia. However, his baseline is unknown, and UA still shows the UTI. The patient will be admitted for a UTI, history of multiple falls, hypertension and acute encephalopathy, likely acute metabolic encephalopathy. I agree with the nurse practitioner's history and physical documentation and others. We will place patient on IV antibiotics, ceftriaxone. Of note, patient had a recent Pseudomonas aeruginosa positive urine culture that was pansensitive sensitive to 3rd and 4th generation cephalosporins. As such, ceftriaxone would be a good choice to treat the patient at this time. We will bolus patient, hydrate patient with IV fluid to maintain adequate blood pressure and monitor blood pressure closely. Put patient on fall precautions. Suspect with patient's baseline dementia and worsening confusion, the patient may likely require correction placement as the family does not appear to be to take care of the patient. We will consult tester operator helper to evaluate patient and be on board to be able to help discuss this with the family. We will continue other home medications of patient. [facility]
[2019-09-13] MEDS ORDERED: TYLENOL PO PRN (04:41)
[2019-09-13] MEDS ORDERED: ZOFRAN IV PRN (04:41)
[2019-09-13] MEDS ORDERED: NS 1,000 ML IV SCH (04:45)
--- NOTE | 2019-09-13 07:29 | Diag Imaging Result Doc PS360 ---
LOWER LEG-RIGHT - 09/12/2019 INDICATION: swelling,erythema,discoloration right calf TECHNIQUE: Four views COMPARISON: 09/05/2019 FINDINGS: There is some subcutaneous edema that is nonspecific. No soft tissue gas or foreign body. The bones are intact and normally mineralized. IMPRESSION: Nonspecific subcutaneous edema. Electronically signed by Ciro Knight 09/13/2019 7:26 AM
--- NOTE | 2019-09-13 07:29 | Diag Imaging Result Doc PS360 ---
LOWER LEG-LEFT - 09/12/2019 INDICATION: injury TECHNIQUE: Four views COMPARISON: None FINDINGS: Bones are intact and normally aligned. Soft tissues are clear. IMPRESSION: Negative exam. Electronically signed by Ciro Knight 09/13/2019 7:27 AM
--- NOTE | 2019-09-13 07:32 | Diag Imaging Result Doc PS360 ---
FOOT COMPLETE RIGHT - 09/12/2019 INDICATION: swelling,erythema,discoloration right ankle TECHNIQUE: Three views COMPARISON: None FINDINGS: There is severe pedal edema throughout the foot, nonspecific. No fractures or bony erosions. No soft tissue gas or foreign body. There is advanced degeneration at the base of the great toe. There is also degeneration of the mid tarsal joints. IMPRESSION: Extensive pedal edema, nonspecific. Electronically signed by Ciro Knight 09/13/2019 7:29 AM
[2019-09-13 07:40] LABS: BASO# 0.02 X1000 (0.0-0.2); BASO% 0.2 % (0.0-0.8); EOS# 0.21 X1000 (0.0-0.7); EOS% 1.8 % (0.0-10.0); HEMATOCRIT 30.2 % (42.0-52.0); HEMOGLOBIN 9.4 g/dL (14.0-18.0); IMM GRAN# 0.03 X1000 (0.0-0.04); IMM GRAN% 0.3 % (0.0-0.5); LYMPH# 1.29 X1000 (1.2-3.4); LYMPH% 10.8 % (20.5-51.1); MCH 30.3 PG (27-31); MCHC 31.1 g/dL (33-37); MCV 97.4 FL (81-99); MONO# 1.39 X1000 (0.11-0.59); MONO% 11.7 % (1.7-9.3); MPV 11.6 FL (7.4-10.4); NEUT# 8.96 X1000 (1.4-6.5); NEUT% 75.2 % (42.2-75.2); PLT 146 X1000 (130-400); RDW 13.2 % (11.5-14.5)
[2019-09-13 08:27] LABS: ALB/GLOB RATIO 1.4; ALBUMIN 3.8 g/dL (3.5-5.0); CALCIUM 9.3 mg/dL (8.8-10.2); CREATININE 1.2 mg/dL (0.7-1.2); MAGNESIUM 1.6 mg/dL (1.5-2.7); POTASSIUM 3.3 mmol/L (3.5-5.1); TOTAL BILIRUBIN 0.93 mg/dL (0.20-1.00); TOTAL PROTEIN 6.5 g/dL (6.3-8.3)
[2019-09-13] MEDS ORDERED: MAGNESIUM SULFATE 2 GM/S.W.I. 2 GM/50 ML IVPB IV ONE (08:41)
[2019-09-13 09:11] LABS: INR 1.19; PROTIME 15.3 Seconds (11.0-16.0)
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
[2019-09-13] MEDS: POTASSIUM CHLORIDE 20 MEQ in NS 1,000 ML IV SCH (10:34)
[2019-09-13] MEDS: VANCOCIN PO SCH ×3 (10:35→20:23)
--- NOTE | 2019-09-13 13:20 | PROGRESS NOTE ---
DATE: 09/13/2019 SUBJECTIVE: The patient is resting comfortably in bed. He is complaining of right lower extremity pain. He has a large wound on his left leg and edema, and this is edematous and painful to palpation. He also has ecchymosis and discoloration noted to the right mid thigh all the way down as well. He has a hematoma and probably he has some ischemic changes in that area. It did appear to have maybe a some fluid collection there, but otherwise this patient is resting in bed. He was able to say his name and date of . He is not oriented to time or place. OBJECTIVE: Vital Signs: Temperature 100 degrees, pulse 94, respiratory rate 20, blood pressure 111/56, oxygen saturation 95% on room air. HEENT: Head normocephalic. No trauma. PERRLA. Neck: Supple. No JVD. No masses. Central trachea. Chest: Clear to auscultation. Abdomen: Soft. Some tenderness to palpation at the level of the periumbilical area and lower abdomen. Extremities: He has a lesion to his right leg in the medial aspect, probably some fluid collection. The leg is edematous with some color changes. It is really painful to palpation. Neurological: Patient is awake. He is alert. He is able to say his name, but he is not oriented to time or place. I do not know if this is his baseline or he has a baseline dementia. LABORATORY: WBC 11.9, hemoglobin 9.4, hematocrit 30.2, platelets 146,000. Sodium 132, potassium 3.3, chloride 95, bicarbonate 27, BUN 18, creatinine 1.2, glucose 102, calcium 9.3. ASSESSMENT AND PLAN: 1. Clostridium difficile colitis. He has been placed on vancomycin p.o. I will continue with same management. 2. Possible urinary tract infection with urinary retention, continue with Rocephin. Dr. Lewis placed a catheter at his office, but he pulled this out. We replaced it again yesterday. 3. Encephalopathy, likely multifactorial. This patient has a urinary tract infection as well as Clostridium difficile. I am not quite sure if he has a baseline dementia that may be worsening. 4. History of atrial fibrillation. Apparently, he has been on anticoagulation with Xarelto, but I am not quite sure about that. Given possible falls and this lesion on his leg, probably I would hold on that medication for now. 5. Right lower extremity trauma with hematoma and swelling. We will monitor this closely. X-ray did not show any bone abnormality, but soft tissue edema. 6. History of atrial fibrillation. Like I mentioned before, probably he was on chronic anticoagulation. He is blood pressure has been in the 90s and 110s mostly. I will try to reconcile the his medications to put him back on his treatment. 7. History of chronic obstructive pulmonary disease on home oxygen. 8. History of congestive heart failure. His previous echocardiogram showed an ejection fraction of 45% to 50% in January 2019. He is getting some fluids at this time, because he came in a little bit dehydrated, probably because of his confusion. I will monitor for now. 9. Deep vein thrombosis prophylaxis. We are holding some anticoagulation at this moment. Probably, I will ask for a lower extremity ultrasound to rule out DVT because of the swelling and trauma. cc: James Gotti MD
--- NOTE | 2019-09-13 15:19 | GENERAL SURGERY CONSULTATION ---
DATE: 09/13/2019 CHIEF COMPLAINT: Right calf hematoma. HISTORY OF PRESENT ILLNESS: This is a pleasant, 88-year-old with multiple medical problems including chronic atrial fibrillation, cardiomyopathy, congestive heart failure, COPD, hypertension, history of permanent pacemaker placement, history of prostatectomy, history of left inguinal hernia repair, history of cholecystectomy and appendectomy. He recently was on his residential real estate sales manager, turned it over, and apparently the mower fell on his leg causing a hematoma. I have been asked to see him regarding that. SOCIAL HISTORY: He is . No tobacco, alcohol, or illicit drug use. FAMILY HISTORY: Unknown. MEDICATIONS: List is noted on the chart. ALLERGIES: He has no known drug allergies. REVIEW OF SYSTEMS: Difficult to obtain due to the patient's confusion. PHYSICAL EXAMINATION: Vital Signs: Temperature is a 100 degrees, heart rate 94, blood pressure 111/56. Heart: Irregular rate and rhythm. Lungs: Bilateral breath sounds. Extremities: He has an eschar on his right medial calf with surrounding ecchymosis and blistering. He has palpable pedal pulses. His calf is not tense. LABORATORY: White count 11,900, hemoglobin 9.4, hematocrit 30. He has been on Xarelto in the past due to his atrial fibrillation, but is no longer on that. He is getting antibiotics, ceftriaxone and vancomycin. ASSESSMENT AND PLAN: Right calf hematoma with overlying eschar. At some point he will require eschar excision with evacuation of the hematoma. Hopefully, we can get his C. difficile resolved before having to take him to the operating room for that. We will recheck his white count tomorrow and see if he deteriorates clinically. Hold all anticoagulants. cc: Davion Dwyer MD
[2019-09-13] MEDS: REMERON PO SCH (20:23)
[2019-09-13] MEDS: ZOCOR PO SCH (20:23)
[2019-09-13] MEDS: FLOMAX PO SCH (20:23)
[2019-09-13] MEDS: ROCEPHIN 1 GM in NS 50 ML IV SCH (20:24)
[2019-09-14] MEDS: VANCOCIN PO SCH ×4 (02:41→21:22)
[2019-09-14 07:12] LABS: BASO# 0.01 X1000 (0.0-0.2); BASO% 0.1 % (0.0-0.8); EOS# 0.19 X1000 (0.0-0.7); EOS% 2.4 % (0.0-10.0); HEMATOCRIT 27.4 % (42.0-52.0); HEMOGLOBIN 8.6 g/dL (14.0-18.0); IMM GRAN# 0.03 X1000 (0.0-0.04); IMM GRAN% 0.4 % (0.0-0.5); LYMPH# 1.24 X1000 (1.2-3.4); LYMPH% 15.5 % (20.5-51.1); MCH 30.6 PG (27-31); MCHC 31.4 g/dL (33-37); MCV 97.5 FL (81-99); MONO# 0.98 X1000 (0.11-0.59); MONO% 12.2 % (1.7-9.3); MPV 11.4 FL (7.4-10.4); NEUT# 5.57 X1000 (1.4-6.5); NEUT% 69.4 % (42.2-75.2); PLT 140 X1000 (130-400); RBC 2.81 XMIL (4.7-6.1); RDW 13.5 % (11.5-14.5); WBC 8.02 X1000 (4.8-10.8)
[2019-09-14 07:31] LABS: AGAP 9; BUN 15 mg/dL (8-22); CALCIUM 8.6 mg/dL (8.8-10.2); CHLORIDE 101 mmol/L (98-107); COSMO 275; CREATININE 1.1 mg/dL (0.7-1.2); ESTIMATED GFR > 60; GLUCOSE 103 mg/dL (70-104); MAGNESIUM 1.9 mg/dL (1.5-2.7); PHOSPHORUS 2.3 mg/dL (2.7-4.5); POTASSIUM 3.4 mmol/L (3.5-5.1); SODIUM 137 mmol/L (136-145); TCO2 27 mmol/L (25-35)
[2019-09-14] MEDS: SINGULAIR PO SCH (09:26)
[2019-09-14] MEDS: FLOMAX PO SCH ×2 (09:26→21:22)
[2019-09-14] MEDS: POTASSIUM CHLORIDE 20 MEQ in NS 1,000 ML IV SCH (09:32)
--- NOTE | 2019-09-14 12:57 | PROGRESS NOTE ---
DATE: 09/14/2019 SUBJECTIVE: As per the patient, he feels better. He is still complaining of right lower extremity pain mostly with movement and palpation. He is not having too many bowel movements. He seems to be getting better. Surgery department evaluated this patient yesterday, and because he has a right calf hematoma with underlying scar that likely needs to be having an excision with evacuation of the hematoma. Hopefully we can do these during this hospitalization once the C. difficile is better controlled. His white blood cell count is normal today. PHYSICAL EXAMINATION: Vital Signs: Temperature 98 degrees, pulse 85, respiratory rate 20, blood pressure 151/91, oxygen saturation 95% on room air. HEENT: Head normocephalic. PERRLA. Neck: Supple. No JVD. No masses. Central trachea. Chest: Clear to auscultation. Abdomen: Soft some tenderness to palpation around the periumbilical area. Neurological: The patient is awake. He is able to say his name. He knows his date of , except the year. He is oriented to time and place. Likely, this is his baseline. Probably he has dementia. Extremities: He has a large scar on the medial aspect of his leg/calf with erythema, ecchymosis and some blisters. His leg he is swollen compared with the left lower extremity. It is painful to palpation. LABORATORY: WBC 8, hemoglobin 8.6, hematocrit 27.4, platelets 140,000. Sodium 137, potassium 3.4, chloride 101, bicarbonate 27, BUN 15, creatinine 1.1, glucose 103, calcium 8.6, phosphorus 2.3, magnesium 1.9. ASSESSMENT AND PLAN: 1. Clostridium difficile colitis. Continue vancomycin by mouth. He seems to be getting better. 2. Possible urinary tract infection with urinary retention. Dr. Lewis placed a catheter at his office, but he pulled this catheter out and we replaced it. Continue with antibiotics. 3. Encephalopathy, likely multifactorial in a patient with urinary tract infection and probable baseline dementia. 4. History of atrial fibrillation. Apparently, he has been on anticoagulation with Xarelto which we have been holding because of the large hematoma on his right calf, probably this patient needs to go to the OR to be able to evacuate this. 5. Right lower extremity trauma with hematoma and swelling as above. 6. History chronic obstructive pulmonary disease not in exacerbation. 7. History of congestive heart failure, ejection fraction 45% to 50% in January 2019. He is getting a little bit of IV fluids at this time, but probably we will stop it tomorrow. 8. Hypokalemia, I am replacing the potassium through the IV fluids. 9. Benign prostatic hypertrophy. Continue with Flomax. cc: James Gotti MD
--- NOTE | 2019-09-14 16:31 | GENERAL SURGERY PROGRESS NOTE ---
DATE: 09/14/2019 Mr. Godoy is afebrile with satisfactory hemodynamics. He has less blistering. He still has an eschar on his left medial calf. Hemoglobin is 8.6, hematocrit 27.4. He is still being treated for C. difficile toxin. We will plan to debride the eschar later this week in the operating room. cc: Davion Dwyer MD
--- NOTE | 2019-09-14 17:24 | Extremity Venous Study ---
PROCEDURE NAME: Venous U/S Right Leg - 09/14/2019 RETAIL STOCK CLERK: Quinton. REQUESTING PHYSICIAN: Dr. Pike. INDICATION: Recent fracture with edema and evaluate for DVT. FINDINGS: Deep superficial veins right lower extremity visualized along their course, vessels were compressible with forward flow. No evidence intraluminal thrombus. SUMMARY: No deep or superficial venous thrombosis in the right lower extremity. cc: MD James Benton MD [facility]
[2019-09-14] MEDS: ZOCOR PO SCH (21:22)
[2019-09-14] MEDS: REMERON PO SCH (21:23)
[2019-09-14] MEDS: ROCEPHIN 1 GM in NS 50 ML IV SCH (21:23)
[2019-09-14] MEDS ORDERED: HALDOL IM ONE (23:36)
[2019-09-15] MEDS: VANCOCIN PO SCH ×4 (03:11→21:15)
[2019-09-15] MEDS: POTASSIUM CHLORIDE 20 MEQ in NS 1,000 ML IV SCH (06:08)
[2019-09-15 07:11] LABS: BASO# 0.02 X1000 (0.0-0.2); BASO% 0.2 % (0.0-0.8); EOS# 0.04 X1000 (0.0-0.7); EOS% 0.4 % (0.0-10.0); HEMOGLOBIN 8.5 g/dL (14.0-18.0); IMM GRAN# 0.03 X1000 (0.0-0.04); IMM GRAN% 0.3 % (0.0-0.5); LYMPH% 13.9 % (20.5-51.1); MCH 30.5 PG (27-31); MCHC 31.5 g/dL (33-37); MCV 96.8 FL (81-99); MONO# 1.29 X1000 (0.11-0.59); MONO% 13.8 % (1.7-9.3); MPV 11.4 FL (7.4-10.4); NEUT% 71.4 % (42.2-75.2); PLT 152 X1000 (130-400); RBC 2.79 XMIL (4.7-6.1); RDW 13.5 % (11.5-14.5); WBC 9.38 X1000 (4.8-10.8)
[2019-09-15 07:31] LABS: AGAP 11; BUN 14 mg/dL (8-22); CALCIUM 8.7 mg/dL (8.8-10.2); CHLORIDE 106 mmol/L (98-107); COSMO 282; CREATININE 0.9 mg/dL (0.7-1.2); ESTIMATED GFR > 60; GLUCOSE 106 mg/dL (70-104); MAGNESIUM 1.9 mg/dL (1.5-2.7); PHOSPHORUS 2.5 mg/dL (2.7-4.5); SODIUM 141 mmol/L (136-145); TCO2 24 mmol/L (25-35)
[2019-09-15] MEDS: SINGULAIR PO SCH (09:31)
[2019-09-15] MEDS: FLOMAX PO SCH ×2 (09:31→21:15)
--- NOTE | 2019-09-15 10:35 | GENERAL SURGERY PROGRESS NOTE ---
DATE: 09/15/2019 Mr. Godoy' right leg eschar looks about the same. I will plan to debride the eschar tomorrow and evacuate the hematoma. We will pack the wound fist with probably some saline gauze and then ultimately, he will probably benefit from a wound VAC. cc: Davion Dwyer MD
[2019-09-15] MEDS ORDERED: SODIUM PHOSPHATE 35 MMOL in NS 250 ML IV ONE (10:48)
[2019-09-15] MEDS: HALDOL IV PRN ×2 (10:56→17:44)
--- NOTE | 2019-09-15 11:17 | PROGRESS NOTE ---
DATE: 09/15/2019 SUBJECTIVE: The patient this morning has been very agitated. He received 1 dose of Haldol 5 mg intravenously, and he is still awake, and throwing all of his stuff from bed. OBJECTIVE: Vital Signs: Temperature 97.3 degrees, heart rate 107, respiratory rate 17, blood pressure 150/99, and O2 saturation 100% on room air. General: This is an 88-year-old male lying in bed in no acute distress. Cardiovascular: S1, S2 heard. No murmurs, gallops, or rubs. Regular rate and rhythm. Respiratory: Clear bilaterally to auscultation. No work of breathing or using accessory muscles. Abdomen: Soft. Mildly tender to palpation around the periumbilical area. Extremities: The patient has a large scar in the medial aspect of the left calf with erythema and ecchymoses. There are some blisters as well in the right leg that is painful to palpation. Neurological: Patient is confused. Does not follow any commands. Mumbles unintelligible words. LABORATORY DATA: White cell count 9.38, hemoglobin 8.5, hematocrit 37, and platelets 152,000 with normal BMP except phosphorus 2.5. ASSESSMENT AND PLAN: 1. C. Diff colitis. Patient continues to be on vancomycin 125 mg p.o. q.6 hours. As per nursing staff, there are no more episodes of diarrhea. We will continue with the same management. 2. Possible urinary tract infection with urinary retention. Patient has Javier catheter. The last urine culture that we did 2 days ago was normal. 3. History of atrial fibrillation. At this point, patient is not on any anticoagulation because of his hematoma but we will continue to monitor. 4. Right lower extremity trauma with hematoma as noted above. According to General Surgery, they will do debridement in the OR later this week. We will continue to monitor. 5. COPD not in any exacerbation. We will continue to monitor. 6. History of systolic congestive heart failure with ejection fraction to 45 to 50% in January of 2019. The patient has been receiving normal saline that has been already stopped. We will continue to monitor. 7. Hypokalemia completely resolved. 8. Disposition. At this point, we will continue to monitor this patient closely. We will start the patient on Haldol and phenobarbital as needed. We will continue to monitor. cc: Jeevan Michael MD [facility]
[2019-09-15] MEDS: PHENOBARBITAL IV PRN (14:49)
[2019-09-15] MEDS: ROCEPHIN 1 GM in NS 50 ML IV SCH (21:14)
[2019-09-15] MEDS: ZOCOR PO SCH (21:15)
[2019-09-15] MEDS: SEROQUEL PO SCH (21:15)
[2019-09-15] MEDS: REMERON PO SCH (21:15)
[2019-09-16] MEDS: POTASSIUM CHLORIDE 20 MEQ in NS 1,000 ML IV SCH ×3 (01:20→20:16)
[2019-09-16] MEDS: VANCOCIN PO SCH ×4 (03:07→21:11)
[2019-09-16 07:13] LABS: BASO# 0.02 X1000 (0.0-0.2); BASO% 0.2 % (0.0-0.8); EOS# 0.02 X1000 (0.0-0.7); EOS% 0.2 % (0.0-10.0); HEMATOCRIT 26.9 % (42.0-52.0); HEMOGLOBIN 8.5 g/dL (14.0-18.0); IMM GRAN# 0.03 X1000 (0.0-0.04); IMM GRAN% 0.4 % (0.0-0.5); LYMPH# 0.92 X1000 (1.2-3.4); LYMPH% 10.9 % (20.5-51.1); MCH 30.4 PG (27-31); MCHC 31.6 g/dL (33-37); MCV 96.1 FL (81-99); MONO% 11.8 % (1.7-9.3); MPV 11.6 FL (7.4-10.4); NEUT# 6.46 X1000 (1.4-6.5); NEUT% 76.5 % (42.2-75.2); PLT 158 X1000 (130-400); RDW 13.5 % (11.5-14.5); WBC 8.45 X1000 (4.8-10.8)
[2019-09-16 07:18] LABS: AGAP 13; BUN 15 mg/dL (8-22); CALCIUM 8.6 mg/dL (8.8-10.2); CHLORIDE 108 mmol/L (98-107); COSMO 284; CREATININE 0.9 mg/dL (0.7-1.2); ESTIMATED GFR > 60; GLUCOSE 106 mg/dL (70-104); POTASSIUM 3.9 mmol/L (3.5-5.1); SODIUM 142 mmol/L (136-145); TCO2 21 mmol/L (25-35)
[2019-09-16] MEDS: FLOMAX PO SCH ×2 (09:19→21:11)
[2019-09-16] MEDS: SINGULAIR PO SCH (09:19)
[2019-09-16] MEDS ORDERED: DIPRIVAN 1% ONE (10:59)
[2019-09-16] MEDS ORDERED: XYLOCAINE-MPF 2% ONE (10:59)
--- NOTE | 2019-09-16 11:08 | GENERAL SURGERY PROGRESS NOTE ---
DATE: 09/16/2019 PLAN: We are planning on debriding his right leg today. I have talked with him. He is still confused. I talked with his daughter and she understands our plan. We will proceed today in order to decrease his risk for infection in that leg and give his wound a better chance to heal. cc: Davion Dwyer MD
[2019-09-16] MEDS ORDERED: OFIRMEV 1000 MG/ISOTONIC SOLN 1,000 MG/100 ML BOTTLE ONE (11:57)
[2019-09-16] MEDS ORDERED: ZOFRAN ONE (11:57)
--- NOTE | 2019-09-16 12:45 | OPERATIVE NOTE ---
PROCEDURE DATE: 09/16/2019 PROCEDURE: 1. Excisional debridement, right calf (7 x 7 x 3 cm). 2. Evacuation of hematoma, right calf. INDICATIONS: An 88-year-old who suffered an injury to his right calf resulting in tissue necrosis and underlying subcutaneous hematoma, and the tissue over the hematoma has . He now presents for excisional debridement and evacuation of the hematoma. DESCRIPTION OF PROCEDURE: Satisfactory general anesthesia was achieved. The right leg was prepped and draped in sterile fashion. We excised the eschar, exposed the underlying hematoma. We excised skin, subcutaneous tissue all the way down to the muscle, including some tendinous tissue. We evacuated the hematoma. The size of the wound not only represented 7 x 7 x 3 cm in size, but also had 6 cm of undermining inferiorly and 5 cm of undermining anteriorly. After debriding the necrotic tissue all the way down to the muscle, we then copiously irrigated and evacuated out all the hematoma. After that was complete, hemostasis was satisfactory using electrocautery. We then packed it with Betadine-impregnated Billy, and then covered the wound with ABD followed by a Kerlix, followed by a 6-inch Micah. He tolerated it well, was sent to the recovery room in satisfactory condition. cc: Davion Dwyer MD
--- NOTE | 2019-09-16 12:53 | PROGRESS NOTE ---
DATE: 09/16/2019 SUBJECTIVE: The patient continues to be confused. No other issues noted as per nursing staff overnight. OBJECTIVE: Vital Signs: Temperature 98.9 degrees, heart rate 73, respiratory rate 18, blood pressure 142/82, O2 saturation 98% on 2 L nasal cannula. General Examination: This is a chronically ill-looking and demented, 88-year-old, male, lying in bed, in no acute distress. Cardiovascular Examination: S1 and S2 heard. No murmurs, gallops, or rubs. Regular rate and rhythm. Respiratory Examination: Clear bilaterally to auscultation. No work of breathing or using accessory muscles. Abdomen: Soft. Apparently, he is mild to palpation around the periumbilical area. Extremities: The patient has a large eschar in the medial aspect of the left calf with erythema and ecchymosis. There are some blisters on the right leg that are painful to palpation. Neurological Examination: The patient is still confused. Mumbles some unintelligible words. Sometimes does follow basic commands like squeezing my fingers. Laboratory Data: Reviewed. ASSESSMENT AND PLAN: 1. Clostridium difficile colitis. The patient continues to be on vancomycin 125 mg by mouth every 6 hours. I will continue with the same management. White cell count is normal. 2. Possible urinary tract infection. Patient with urinary retention. Patient continues to have Javier catheter. Urine culture is negative. 3. History of atrial fibrillation. The patient is not on any anticoagulation because of the hematoma in the right leg. 4. Right lower extremity trauma with hematoma as noted above. General surgery is going to take this patient to the operating room for debridement. We appreciate surgery's help. 5. Chronic obstructive pulmonary disease. Patient is not in any exacerbation. We will continue to monitor and provide breathing treatment as needed. 6. History of systolic congestive heart failure with ejection fraction of 45 to 50 percent in January of 2019. We will continue to monitor. It looks like this patient is clinically not in any exacerbation. 7. Hypokalemia, resolved. 8. Disposition. At this point, the patient is going to have debridement of the right leg hematoma. Then, as soon as this patient stops having diarrhea, we will try to send this patient to rehab. Most likely, it is going to be either Saturday or next Saturday. cc: Jeevan Michael MD
[2019-09-16] MEDS: HALDOL IV PRN (17:04)
[2019-09-16] MEDS: SEROQUEL PO SCH (21:11)
[2019-09-16] MEDS: ROCEPHIN 1 GM in NS 50 ML IV SCH (21:11)
[2019-09-16] MEDS: ZOCOR PO SCH (21:11)
[2019-09-16] MEDS: REMERON PO SCH (21:11)
[2019-09-17] MEDS: HALDOL IV PRN ×2 (01:28→12:51)
[2019-09-17] MEDS: VANCOCIN PO SCH ×4 (03:32→20:26)
[2019-09-17 07:44] LABS: BASO# 0.04 X1000 (0.0-0.2); BASO% 0.4 % (0.0-0.8); EOS# 0.05 X1000 (0.0-0.7); EOS% 0.5 % (0.0-10.0); HEMATOCRIT 30.8 % (42.0-52.0); HEMOGLOBIN 9.5 g/dL (14.0-18.0); IMM GRAN# 0.03 X1000 (0.0-0.04); IMM GRAN% 0.3 % (0.0-0.5); LYMPH# 1.41 X1000 (1.2-3.4); LYMPH% 13.1 % (20.5-51.1); MCH 30.3 PG (27-31); MCHC 30.8 g/dL (33-37); MCV 98.1 FL (81-99); MONO% 8.3 % (1.7-9.3); MPV 11.9 FL (7.4-10.4); NEUT# 8.35 X1000 (1.4-6.5); NEUT% 77.4 % (42.2-75.2); PLT 180 X1000 (130-400); RBC 3.14 XMIL (4.7-6.1); RDW 13.6 % (11.5-14.5); WBC 10.78 X1000 (4.8-10.8)
[2019-09-17 08:13] LABS: AGAP 12; BUN 18 mg/dL (8-22); CALCIUM 9.5 mg/dL (8.8-10.2); CHLORIDE 110 mmol/L (98-107); COSMO 289; CREATININE 0.9 mg/dL (0.7-1.2); ESTIMATED GFR > 60; GLUCOSE 100 mg/dL (70-104); POTASSIUM 4.2 mmol/L (3.5-5.1); SODIUM 144 mmol/L (136-145); TCO2 22 mmol/L (25-35)
[2019-09-17] MEDS: SINGULAIR PO SCH (09:49)
[2019-09-17] MEDS: FLOMAX PO SCH ×2 (09:49→20:26)
--- NOTE | 2019-09-17 09:49 | GENERAL SURGERY PROGRESS NOTE ---
DATE: 09/17/2019 The packing is removed. We will get Tashia, the wound care nurse, to apply a wound VAC. His white count is 10,800, hemoglobin 9.5. cc: Davion Dwyer MD
--- NOTE | 2019-09-17 16:18 | PROGRESS NOTE ---
DATE: 09/17/2019 SUBJECTIVE: Today, Mr. Godoy refers to be feeling well. Denies any new complaints. I looked at the wound almost at the same time the wound care nurse had come in to put in the wound VAC. OBJECTIVE: Vital signs: Blood pressure is 149/97, pulse of 114, temperature is 97.6 degrees, respirations 18. The patient is saturating 95% on room air. General: Mr. Godoy is an 88-year- old gentleman. He is in bed. No distress. Mucosa is pink and moist. Anicteric. Acyanotic. Neck: Supple. Chest: Clear to auscultation. No crepitations. No rhonchi. Cardiovascular: Regular rate and rhythm. Gastrointestinal: Abdomen is soft. Bowel sounds present. No hepatosplenomegaly. Extremities: The right lower extremity has discoloration in the leg and there is a very large surgical wound with clean base. No signs of infection. Obviously, there is a small bone exposure and tendons as well. Central Nervous System: The patient is awake, alert. He does have some underlying cognitive impairment. LABORATORY DATA: Has been reviewed. WBC is normal. Chemistry is also within normal range. ASSESSMENT: 1. Clostridium difficile colitis on presentation, improved. Patient continues to be on vancomycin for a total of 10 days. 2. History of atrial fibrillation currently rate controlled. 3. Right lower extremity trauma with hematoma associated with skin necrosis. Patient is status post status post excision and evacuation of hematoma in the right in calf and wound VAC is going to be applied. 4. History of congestive heart failure, ejection fraction of 45% to 50% on an echo on January 2019. We will continue on his home medications. The patient euvolemic at this point. 5. Dementia presumably combination of Alzheimer's and possible and possibly ischemia noted. PLAN: In general, I think Mr. Godoy is doing well. I discontinued the ceftriaxone and switched it to Ancef for more skin pathogen coverage for the surgical wound. We also have him on p.o. vancomycin for the Clostridium difficile. Otherwise his blood cultures and urine cultures have been negative. cc: Rex Mullins MD
[2019-09-17] MEDS: PHENOBARBITAL IV PRN (17:19)
[2019-09-17] MEDS: KEFZOL 1 GM/D5W 1 GM/50 ML IVPB IV SCH ×2 (17:41→23:50)
[2019-09-17] MEDS: POTASSIUM CHLORIDE 20 MEQ in NS 1,000 ML IV SCH (17:46)
[2019-09-17] MEDS: REMERON PO SCH (20:26)
[2019-09-17] MEDS: SEROQUEL PO SCH (20:26)
[2019-09-17] MEDS: ZOCOR PO SCH (20:26)
[2019-09-18] MEDS: VANCOCIN PO SCH ×4 (01:39→20:51)
[2019-09-18] MEDS: HALDOL IV PRN ×2 (01:39→18:07)
[2019-09-18 07:25] LABS: BASO# 0.02 X1000 (0.0-0.2); BASO% 0.2 % (0.0-0.8); EOS# 0.09 X1000 (0.0-0.7); EOS% 0.9 % (0.0-10.0); HEMATOCRIT 28.3 % (42.0-52.0); HEMOGLOBIN 8.7 g/dL (14.0-18.0); IMM GRAN# 0.04 X1000 (0.0-0.04); IMM GRAN% 0.4 % (0.0-0.5); LYMPH% 11.5 % (20.5-51.1); MCH 29.8 PG (27-31); MCHC 30.7 g/dL (33-37); MCV 96.9 FL (81-99); MONO# 0.76 X1000 (0.11-0.59); MONO% 7.3 % (1.7-9.3); MPV 12.1 FL (7.4-10.4); NEUT# 8.33 X1000 (1.4-6.5); NEUT% 79.7 % (42.2-75.2); PLT 193 X1000 (130-400); RBC 2.92 XMIL (4.7-6.1); RDW 13.7 % (11.5-14.5); WBC 10.44 X1000 (4.8-10.8)
[2019-09-18 07:39] LABS: AGAP 11; BUN 16 mg/dL (8-22); CALCIUM 8.9 mg/dL (8.8-10.2); CHLORIDE 110 mmol/L (98-107); COSMO 288; CREATININE 0.8 mg/dL (0.7-1.2); ESTIMATED GFR > 60; GLUCOSE 101 mg/dL (70-104); PHOSPHORUS 2.7 mg/dL (2.7-4.5); POTASSIUM 4.2 mmol/L (3.5-5.1); SODIUM 144 mmol/L (136-145); TCO2 23 mmol/L (25-35)
--- NOTE | 2019-09-18 09:07 | GENERAL SURGERY PROGRESS NOTE ---
DATE: 09/18/2019 SUBJECTIVE: Mr. Godoy wound VAC is in place and appears to be functioning satisfactorily. He is afebrile. He will have his wound VAC changed on Saturday and again on Saturday. He will of course have 1 as an outpatient and can follow up with me in the wound clinic. cc: Davion Dwyer MD
[2019-09-18] MEDS: SINGULAIR PO SCH (09:29)
[2019-09-18] MEDS: FLOMAX PO SCH ×2 (09:29→20:51)
[2019-09-18] MEDS: COREG PO SCH ×2 (09:33→20:51)
[2019-09-18] MEDS: KEFZOL 1 GM/D5W 1 GM/50 ML IVPB IV SCH ×2 (09:33→17:44)
[2019-09-18 11:00] LABS: URINE SOURCE CATH
[2019-09-18 11:10] LABS: BILIRUBIN URINE NEGATIVE (NEGATIVE); BLOOD URINE NEGATIVE (NEGATIVE); COLOR YELLOW; GLUCOSE URINE NEGATIVE (NEGATIVE); KETONE URINE 10 mg/dL (NEGATIVE); LEUKOCYTES URINE NEGATIVE (NEGATIVE); NITRITE URINE NEGATIVE (NEGATIVE); PH URINE 5.5; PROTEIN URINE TRACE mg/dL (NEGATIVE); SP GRAVITY URINE 1.023; TURBIDITY URINE CLEAR (CLEAR); UR EPITHELIAL CELLS <10 /HPF (<10); URINE BACTERIA NEGATIVE /HPF; URINE RBC <10 /HPF (<10); URINE WBC <10 /HPF (<10); UROBILINOGEN URINE NORMAL (NORMAL)
--- NOTE | 2019-09-18 11:26 | PROGRESS NOTE ---
DATE: 09/18/2019 SUBJECTIVE: The patient seems to be confused today, he is oriented to person and date of , he is oriented to place or time, and it looks like he has been having these kind of problems on and off. I am not quite sure if he has any kind of dementia though. OBJECTIVE: Vital Signs: Temperature 97.9 degrees, pulse 113, respiratory rate 19, blood pressure 115/96, oxygen saturation 96 on room air. HEENT: Head normocephalic, no trauma. PERRLA. Neck: Supple. No JVD. No masses. Central trachea. Chest: Clear to auscultation. No wheezing. No rales. Abdomen: Soft, nontender, nondistended. No hepatosplenomegaly. Extremities: His right lower extremity is covered with a dressing, and he has a wound VAC. I do not see any signs of bleeding. Neurological: The patient is awake and alert. He is following commands on and off. He is able to say his name and date of . He is oriented to time or place. LABORATORY: WBC 10.4, hemoglobin 8.7, hematocrit 28.3, platelets 193,000. Sodium 144, potassium 4.2, chloride 110, bicarbonate 23, BUN 16, creatinine 0.8, glucose 101. Calcium 8.9. ASSESSMENT AND PLAN: 1. Clostridium difficile colitis. Continue with vancomycin by mouth. Seems to be better. 2. Urinary tract infection, with urinary retention. Dr. Lewis placed a catheter at his office but he pulled this catheter out because he has been confused, we will replace it again. 3. Encephalopathy, likely multifactorial, in a patient with urinary tract infection and likely dementia. 4. History of atrial fibrillation. Apparently, he has been on anticoagulation with Xarelto which we have stopped because of the large hematoma on his right calf. His heart rate has been in the 110s. I will put him on carvedilol to see how he does. He was on carvedilol before at 25 mg twice a day. I will start with 12.5, and I will increase it as needed. 5. Right lower extremity trauma, with a large hematoma on his right calf, status post excision and debridement, with evacuation of the hematoma, done on 09/16/2019, at this moment with a wound VAC. 6. History of congestive heart failure with ejection fraction of 45 to 50% on an echocardiogram done in January 2019. He seems to be euvolemic at this moment. 7. Likely dementia. Continue with same management. 8. History of chronic obstructive pulmonary disease, not in exacerbation. 9. Benign prostatic hypertrophy. Continue with Flomax. cc: James Gotti MD
[2019-09-18] MEDS: SEROQUEL PO SCH (20:51)
[2019-09-18] MEDS: REMERON PO SCH (20:51)
[2019-09-18] MEDS: ZOCOR PO SCH (20:51)
[2019-09-19] MEDS: KEFZOL 1 GM/D5W 1 GM/50 ML IVPB IV SCH ×3 (01:13→15:44)
[2019-09-19] MEDS: VANCOCIN PO SCH ×4 (01:13→20:11)
[2019-09-19 07:02] LABS: BASO# 0.02 X1000 (0.0-0.2); BASO% 0.2 % (0.0-0.8); EOS# 0.14 X1000 (0.0-0.7); EOS% 1.1 % (0.0-10.0); HEMATOCRIT 30.8 % (42.0-52.0); HEMOGLOBIN 9.5 g/dL (14.0-18.0); IMM GRAN# 0.06 X1000 (0.0-0.04); IMM GRAN% 0.5 % (0.0-0.5); LYMPH% 9.8 % (20.5-51.1); MCH 30.2 PG (27-31); MCHC 30.8 g/dL (33-37); MCV 97.8 FL (81-99); MONO# 0.74 X1000 (0.11-0.59); MPV 12.4 FL (7.4-10.4); NEUT# 10.09 X1000 (1.4-6.5); NEUT% 82.4 % (42.2-75.2); PLT 207 X1000 (130-400); RBC 3.15 XMIL (4.7-6.1); RDW 13.7 % (11.5-14.5); WBC 12.25 X1000 (4.8-10.8)
[2019-09-19 07:05] LABS: AGAP 12; BUN 15 mg/dL (8-22); CALCIUM 8.8 mg/dL (8.8-10.2); CHLORIDE 107 mmol/L (98-107); COSMO 284; CREATININE 0.8 mg/dL (0.7-1.2); ESTIMATED GFR > 60; GLUCOSE 101 mg/dL (70-104); POTASSIUM 4.1 mmol/L (3.5-5.1); SODIUM 142 mmol/L (136-145); TCO2 23 mmol/L (25-35)
[2019-09-19] MEDS: COREG PO SCH ×2 (08:55→20:11)
[2019-09-19] MEDS: FLOMAX PO SCH ×2 (08:55→20:11)
[2019-09-19] MEDS: SINGULAIR PO SCH (09:06)
--- NOTE | 2019-09-19 11:30 | PROGRESS NOTE ---
DATE: 09/19/2019 Mr. Godoy is an 88-year-old, white male who is under restraints at this time, seems to be confused. He has a wound VAC involving his right leg per Dr. Dwyer. On 09/16/2019 Dr. Dwyer performed excisional debridement of his right calf for evacuation of a hematoma and it is being treated with a wound VAC. The wound VAC is in place. The dressing is intact. He is getting IV Ancef and vancomycin. cc: Yessenia Wayne MD
--- NOTE | 2019-09-19 11:50 | PROGRESS NOTE ---
DATE: 09/19/2019 SUBJECTIVE: The patient is still confused today. He is oriented to person, he is able to say part of his date of . He knows the month and the day, but not the year. He is not oriented to time or place, likely he has a baseline dementia as well. On the other hand, I will increase the dose of the carvedilol because his heart rate has been slightly elevated, up to the 120s but mostly in the 100s-110s. OBJECTIVE: Vital Signs: Temperature 98.8 degrees, pulse 98, respiratory rate 19, blood pressure 163/104, oxygen saturation 100% on 2 L of nasal cannula. HEENT: Head normocephalic, no trauma. PERRLA. Neck: Supple. No JVD. No masses. Central trachea. Chest: Clear to auscultation. No wheezing. No rales. Abdomen: Soft, nontender, nondistended. No hepatosplenomegaly. Extremities: His right lower extremity is covered with a dressing and he has a wound VAC. I do not see any signs of active bleeding or infection because it is covered. Neurological: The patient is awake, he is alert. He is following commands on and off. He is able to say his name and part of his date of . He is not oriented to time or place. LABORATORY DATA: WBC 12.2, hemoglobin 9.5, hematocrit 30.8, platelets 207,000, sodium 142, potassium 4.1, chloride 107, bicarbonate 23, BUN 15, creatinine 0.8, glucose 101, calcium 8.8. ASSESSMENT AND PLAN: 1. Clostridium difficile colitis. Continue with vancomycin by mouth. Seems to be better. 2. Urinary tract infection with urinary retention. A Javier catheter has been placed by Dr. Lewis as an outpatient. We will continue with same management. 3. Encephalopathy, likely multifactorial. This patient has a urinary tract infection and likely dementia as well. 4. History of atrial fibrillation. It looks like he has been on anticoagulation, but we have stopped that because he has a large hematoma on his right calf that has been drained. I have placed this patient back on carvedilol, his home dose at 25 mg twice a day. 5. Right lower extremity trauma with large hematoma on his right calf, status post incision and debridement with evacuation of the hematoma done on 09/16/2019. At this moment he is being followed by Surgery Department and a wound VAC has been placed. 6. History of congestive heart failure with an ejection fraction of 45 to 50 percent on an echocardiogram done on January 2019. Seems to be euvolemic at this moment. 7. Likely dementia. Continue with same management. 8. History of chronic obstructive pulmonary disease, not in exacerbation. 9. Benign prostatic hypertrophy. Continue with Flomax. cc: James Gotti MD
[2019-09-19] MEDS: MYCOSTATIN SUSP PO SCH ×4 (11:53→20:11)
[2019-09-19] MEDS ORDERED: BLISTEX MEDICATED BERRY LIP BALM TOP ONE (16:57)
[2019-09-19] MEDS: SEROQUEL PO SCH (20:11)
[2019-09-19] MEDS: REMERON PO SCH (20:11)
[2019-09-19] MEDS: ZOCOR PO SCH (20:12)
[2019-09-20] MEDS: VANCOCIN PO SCH ×4 (01:00→20:19)
[2019-09-20] MEDS: KEFZOL 1 GM/D5W 1 GM/50 ML IVPB IV SCH ×3 (01:01→17:17)
[2019-09-20] MEDS ORDERED: BLISTEX MEDICATED BERRY LIP BALM TOP PRN (04:31)
[2019-09-20 06:55] LABS: BASO# 0.02 X1000 (0.0-0.2); BASO% 0.2 % (0.0-0.8); EOS# 0.11 X1000 (0.0-0.7); HEMATOCRIT 30.4 % (42.0-52.0); HEMOGLOBIN 9.5 g/dL (14.0-18.0); IMM GRAN# 0.06 X1000 (0.0-0.04); IMM GRAN% 0.5 % (0.0-0.5); LYMPH# 0.87 X1000 (1.2-3.4); LYMPH% 7.7 % (20.5-51.1); MCH 30.5 PG (27-31); MCHC 31.3 g/dL (33-37); MCV 97.7 FL (81-99); MONO# 0.89 X1000 (0.11-0.59); MONO% 7.8 % (1.7-9.3); MPV 12.5 FL (7.4-10.4); NEUT# 9.42 X1000 (1.4-6.5); NEUT% 82.8 % (42.2-75.2); PLT 212 X1000 (130-400); RBC 3.11 XMIL (4.7-6.1); RDW 13.7 % (11.5-14.5); WBC 11.37 X1000 (4.8-10.8)
[2019-09-20 07:16] LABS: AGAP 13; BUN 18 mg/dL (8-22); CHLORIDE 109 mmol/L (98-107); COSMO 289; CREATININE 0.8 mg/dL (0.7-1.2); ESTIMATED GFR > 60; GLUCOSE 103 mg/dL (70-104); POTASSIUM 4.2 mmol/L (3.5-5.1); SODIUM 144 mmol/L (136-145); TCO2 22 mmol/L (25-35)
[2019-09-20] MEDS: MYCOSTATIN SUSP PO SCH ×4 (11:04→20:18)
[2019-09-20] MEDS: COREG PO SCH ×2 (11:04→20:19)
[2019-09-20] MEDS: FLOMAX PO SCH ×2 (11:04→20:18)
[2019-09-20] MEDS: SINGULAIR PO SCH (11:04)
--- NOTE | 2019-09-20 13:43 | PROGRESS NOTE ---
DATE: 09/20/2019 SUBJECTIVE: The patient is still confused. He is oriented to person. He is not oriented to date of . He is not oriented to place or time. He is following commands on and off. Probably, this patient has baseline dementia. I have decreased the dose of the Seroquel from 100 to 25 during the night, and I will continue with the rest of the medications. Since he has been refusing to eat, I will go ahead and add Clinimix to his medications. OBJECTIVE: Vital Signs: Temperature 97.9 degrees, pulse 91, respiratory rate 17, blood pressure 143/94, oxygen saturation 100% on 2 L of nasal cannula. HEENT: Head normocephalic. No trauma. PERRLA. Neck: Supple. No JVD. No masses. Central trachea. Chest: Clear to auscultation. No wheezing. No rales. Abdomen: Soft, nontender, nondistended. No hepatosplenomegaly. Extremities: His right lower extremity is covered with a dressing, and he has a wound VAC. I do not see any signs of active bleeding or infection because it is covered. Neurological: The patient is awake. He is alert. He is following commands on and off. He has some tremors. He is not oriented to time or place. LABORATORY DATA: WBC 11.3, hemoglobin 9.5, hematocrit 30.4, platelets 212,000. Sodium 144, potassium 4.2, chloride 109, bicarbonate 22, BUN 18, creatinine 0.8, glucose 103, calcium 9. ASSESSMENT AND PLAN: 1. Clostridium difficile colitis. Continue with vancomycin by mouth. Seems to be much better. 2. Urinary tract infection with urinary retention. Javier catheter has been replaced again, and that has been placed as an outpatient by Dr. Lewis. Will continue with the same management. 3. Encephalopathy, likely multifactorial. I do believe this patient has a baseline dementia, and he has this urinary tract infection and postoperative state. 4. History of atrial fibrillation. It looks like he has been on anticoagulation, but we have stopped that because of the large hematoma on his right calf that has been drained. I placed this patient back on carvedilol. His heart rate has been more stable. Blood pressure has been fine too. 5. History of congestive heart failure with an ejection fraction of 45% to 50% on an echocardiogram done in 01/2019. He seems to be euvolemic at this moment. His mouth is a little bit dry though. 6. Likely dementia. Continue with the same management. 7. History of chronic obstructive pulmonary disease, not in exacerbation. 8. Benign prostatic hypertrophy. Continue with Flomax. 9. Generalized weakness and physical deconditioning. Occupational Therapy and Physical Therapy have been requested. Likely, this patient will need to go to a rehab center. cc: James Gotti MD
[2019-09-20] MEDS: CLINIMIX E 4.25%-5% SOLUTION 1,000 ML IV SCH (14:17)
[2019-09-20] MEDS: REMERON PO SCH (20:18)
[2019-09-20] MEDS: ZOCOR PO SCH (20:19)
[2019-09-20] MEDS: SEROQUEL PO SCH (20:22)
[2019-09-21] MEDS: VANCOCIN PO SCH ×4 (01:07→21:51)
[2019-09-21] MEDS: KEFZOL 1 GM/D5W 1 GM/50 ML IVPB IV SCH ×4 (01:07→23:39)
--- NOTE | 2019-09-21 06:48 | Diag Imaging Result Doc PS360 ---
EXAM: CHEST-PORTABLE HISTORY: dyspnea TECHNIQUE: Single view COMPARISON: 09/12/2019 FINDINGS: The lungs are well expanded. The heart remains enlarged. Mild increased interstitial markings have developed. 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 IMPRESSION: Development of mild pulmonary edema Electronically signed by Ridge Martinez 09/21/2019 6:46 AM
[2019-09-21 07:09] LABS: BASO# 0.05 X1000 (0.0-0.2); BASO% 0.4 % (0.0-0.8); EOS# 0.19 X1000 (0.0-0.7); EOS% 1.6 % (0.0-10.0); HEMATOCRIT 31.8 % (42.0-52.0); HEMOGLOBIN 9.8 g/dL (14.0-18.0); IMM GRAN# 0.04 X1000 (0.0-0.04); IMM GRAN% 0.3 % (0.0-0.5); LYMPH# 1.22 X1000 (1.2-3.4); LYMPH% 10.5 % (20.5-51.1); MCH 30.3 PG (27-31); MCHC 30.8 g/dL (33-37); MCV 98.5 FL (81-99); MONO# 0.95 X1000 (0.11-0.59); MONO% 8.2 % (1.7-9.3); MPV 12.5 FL (7.4-10.4); NEUT# 9.14 X1000 (1.4-6.5); PLT 211 X1000 (130-400); RBC 3.23 XMIL (4.7-6.1); RDW 13.8 % (11.5-14.5); WBC 11.59 X1000 (4.8-10.8)
[2019-09-21 07:33] LABS: AGAP 9; BUN 18 mg/dL (8-22); CALCIUM 9.2 mg/dL (8.8-10.2); CHLORIDE 107 mmol/L (98-107); COSMO 285; CREATININE 0.8 mg/dL (0.7-1.2); ESTIMATED GFR > 60; GLUCOSE 105 mg/dL (70-104); POTASSIUM 4.1 mmol/L (3.5-5.1); SODIUM 142 mmol/L (136-145); TCO2 26 mmol/L (25-35)
--- NOTE | 2019-09-21 09:51 | GENERAL SURGERY PROGRESS NOTE ---
DATE: 09/21/2019 Mr. Godoy has his wound VAC in place. He is afebrile. I will try to look at his wound today. He will be discharged with the wound VAC and follow up with me hopefully at the [facility] [place]. cc: Davion Dwyer MD
[2019-09-21] MEDS: MYCOSTATIN SUSP PO SCH ×4 (10:08→21:52)
[2019-09-21] MEDS: SINGULAIR PO SCH (10:09)
[2019-09-21] MEDS: FLOMAX PO SCH ×2 (10:09→21:51)
[2019-09-21] MEDS: COREG PO SCH ×2 (10:09→21:52)
--- NOTE | 2019-09-21 14:04 | PROGRESS NOTE ---
DATE: 09/21/2019 SUBJECTIVE: The patient is still confused. He was able to say his name. He is following commands on and off today again. It looks like he has a baseline dementia. I decreased the dose of the Seroquel to 25 yesterday and it seems to be working. He is still refusing to eat. OBJECTIVE: Vital Signs: Temperature 98 degrees, pulse 69, respiratory rate 18, blood pressure 143/86, oxygen saturation 99% on 2 L of nasal cannula. HEENT: Head, normocephalic. No trauma. PERRLA. Neck: Supple. No JVD. No masses. Central trachea. Chest: Clear to auscultation. No wheezing. Some crepitus at the bases. Abdomen: Soft, nontender, nondistended. Extremities: His right lower extremity is covered with a dressing. He has a wound VAC. I do not see any signs of active bleeding. Neurological: The patient is sleepy, but arousable. Like I said, he is following commands on and off. He has some tremors. He is oriented to time and place, which I believe probably he is his baseline with dementia. LABORATORY: WBC 11.5, hemoglobin 9.8, hematocrit 31.8, platelets 211,000. Sodium 142, potassium 4.1, chloride 107, bicarbonate 26, BUN 18, creatinine 0.8, glucose 105, calcium 9.2. ASSESSMENT AND PLAN: 1. Clostridium difficile colitis, continue with vancomycin by mouth. He seems to be better. 2. Urinary retention with urinary tract infection. Continue with antibiotics. Javier catheter has been placed and as an outpatient by Dr. Lewis, but he has been pulling this out at least a couple times, it has been replaced. 3. Encephalopathy, likely multifactorial. I do believe he has a baseline dementia. 4. History of atrial fibrillation. He has been on anticoagulation before, but we stopped that because he has a large hematoma on his right calf that has been drained. I put this patient back on his carvedilol. Heart rate has been stable as well as the blood pressure. 5. History of congestive heart failure with an ejection fraction of 45% to 50% on an echocardiogram done on January 2019, seems to be euvolemic at this moment. 6. Likely dementia, I do believe this is quite severe. 7. History of chronic obstructive pulmonary disease, not in exacerbation. 8. Benign prostatic hypertrophy continue with Flomax. 9. Generalized weakness and physical deconditioning. Occupational therapy and physical therapy have been requested and likely this patient will need to go to a rehab center. cc: James Gotti MD
[2019-09-21] MEDS: CLINIMIX E 4.25%-5% SOLUTION 1,000 ML IV SCH (16:27)
[2019-09-21] MEDS: SEROQUEL PO SCH (21:52)
[2019-09-21] MEDS: ZOCOR PO SCH (21:52)
[2019-09-21] MEDS: REMERON PO SCH (21:52)
[2019-09-21] MEDS: HALDOL IV PRN (23:39)
[2019-09-22] MEDS: VANCOCIN PO SCH ×4 (02:12→21:55)
[2019-09-22 06:50] LABS: BASO# 0.02 X1000 (0.0-0.2); BASO% 0.2 % (0.0-0.8); EOS# 0.17 X1000 (0.0-0.7); EOS% 1.5 % (0.0-10.0); HEMATOCRIT 32.6 % (42.0-52.0); HEMOGLOBIN 9.9 g/dL (14.0-18.0); IMM GRAN# 0.03 X1000 (0.0-0.04); IMM GRAN% 0.3 % (0.0-0.5); LYMPH# 1.06 X1000 (1.2-3.4); LYMPH% 9.2 % (20.5-51.1); MCH 29.9 PG (27-31); MCHC 30.4 g/dL (33-37); MCV 98.5 FL (81-99); MONO# 0.95 X1000 (0.11-0.59); MONO% 8.2 % (1.7-9.3); MPV 12.6 FL (7.4-10.4); NEUT# 9.32 X1000 (1.4-6.5); NEUT% 80.6 % (42.2-75.2); PLT 199 X1000 (130-400); RBC 3.31 XMIL (4.7-6.1); WBC 11.55 X1000 (4.8-10.8)
[2019-09-22 07:14] LABS: AGAP 8; BUN 19 mg/dL (8-22); CALCIUM 9.3 mg/dL (8.8-10.2); CHLORIDE 106 mmol/L (98-107); COSMO 282; CREATININE 0.8 mg/dL (0.7-1.2); ESTIMATED GFR > 60; GLUCOSE 110 mg/dL (70-104); POTASSIUM 4.2 mmol/L (3.5-5.1); SODIUM 140 mmol/L (136-145); TCO2 26 mmol/L (25-35)
[2019-09-22] MEDS: MYCOSTATIN SUSP PO SCH ×4 (09:59→21:53)
[2019-09-22] MEDS: KEFZOL 1 GM/D5W 1 GM/50 ML IVPB IV SCH ×2 (09:59→15:58)
[2019-09-22] MEDS: SINGULAIR PO SCH (09:59)
[2019-09-22] MEDS: FLOMAX PO SCH ×2 (09:59→21:55)
[2019-09-22] MEDS: COREG PO SCH ×2 (09:59→21:53)
--- NOTE | 2019-09-22 12:35 | PROGRESS NOTE ---
DATE: 09/22/2019 SUBJECTIVE: This patient is still confused, and he is on restraints because he is always trying to pull out his Javier catheter and his wound VAC. He is oriented to name. Yesterday, I had a conversation with his . I explained to her the whole situation. It is going to be really difficult to discharge this patient without restraints, and if I also increased the medications, probably, he is going to be more sleepy, and not doing any kind of physical activity and/or eating so it is going to be a really hard situation with this patient. On the other hand, his wound at the level of the right lower extremity seems to be okay. There is bone, muscle and tendon exposure, but no signs of infection and the edema is remarkably better. He is still on a wound VAC, and surgery is on board. Probably, he needs some skin graft in the future. OBJECTIVE: Vital Signs: Temperature 97.5 degrees, pulse 86, respiratory rate 12, blood pressure 145/81, and oxygen saturation 94% on room air. HEENT: Head normocephalic. No trauma. PERRLA. Neck: Supple. No JVD. No masses. Central trachea. Chest: Clear to auscultation. No wheezing. There is some crepitus at the bases. Abdomen: Soft, nontender, and nondistended. Extremities: His right lower extremity is covered with a dressing, and he has a wound VAC. I examined this yesterday, and he has a lesion of around 10 cm in diameter with bone and muscle exposure, but I do not see any secretion or bleeding. Neurological: The patient is sleepy, but arousable. He is able to follow commands on and off, but he has some tremors. He is oriented only to person. LABORATORY: WBC 11.5, hemoglobin 9.9, hematocrit 32.6, and platelets 199,000. Sodium 140, potassium 4.2, chloride 106, bicarbonate 26, BUN 19, creatinine 0.8, glucose 110, and calcium 9.3. ASSESSMENT AND PLAN: 1. C. Difficile colitis. He will receive 1 more day of treatment. I do believe tomorrow will be his last day with p.o. vancomycin. His diarrhea resolved. He seems to be better. 2. UTI with urinary retention. Continue with antibiotics. Javier catheter has been placed, actually initially was placed by Dr. Lewis as an outpatient because of the retention but, because of his confusion he has been removing this on and off, and is been replaced. 3. Encephalopathy, this is multifactorial. I do believe he has a baseline dementia. 4. History of atrial fibrillation. He has been on anticoagulation before which we have stopped, and this has been discussed with the due to high risk of falling and bleeding. Continue with carvedilol to control the rate and blood pressure. 5. 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 His wound is open and is covered with some dressing on the wound VAC. I do not see any secretion. The edema seems to be much better. There is bone and muscle exposure still. Probably, in the future he will need to have a skin graft if necessary. 6. History of congestive heart failure with an ejection fraction of 45 to 50 percent. He seems to be euvolemic. Continue with same management. 7. Likely dementia, which I believe is quite severe. 8. History of chronic obstructive pulmonary disease not in exacerbation. 9. BPH. Continue with Flomax. 10. Generalized weakness and physical deconditioning, occupational therapy, physical therapy on board. We have requested COVID-19 to be able to send this patient to a rehab/intermediate, but it is going to be difficult because we have not been able to remove his restraints. Because of his confusion, he has been pulling out his lines and catheters as well. cc: James Gotti MD
[2019-09-22] MEDS ORDERED: CALMOSEPTINE OINTMENT TOP PRN (21:46)
[2019-09-22] MEDS: SEROQUEL PO SCH (21:53)
[2019-09-22] MEDS: REMERON PO SCH (21:54)
[2019-09-22] MEDS: ZOCOR PO SCH (21:55)
[2019-09-23] MEDS: KEFZOL 1 GM/D5W 1 GM/50 ML IVPB IV SCH ×3 (00:01→18:04)
[2019-09-23] MEDS: VANCOCIN PO SCH (02:06)
[2019-09-23] MEDS: HALDOL IV PRN (02:06)
[2019-09-23] MEDS: CLINIMIX E 4.25%-5% SOLUTION 1,000 ML IV SCH ×2 (07:26→13:39)
--- NOTE | 2019-09-23 08:49 | GENERAL SURGERY PROGRESS NOTE ---
DATE: 09/23/2019 Mr. Godoy' wound is inspected today and it looks good. There is granulation tissue over the muscle. The wound is reginald. It is healthy looking. I think we will continue with the wound VAC and from the surgery perspective he can be discharged whenever a bed is obtained. cc: Davion Dwyer MD
[2019-09-23] MEDS: MYCOSTATIN SUSP PO SCH ×3 (09:38→18:04)
[2019-09-23] MEDS: SEROQUEL PO SCH ×2 (09:38→21:08)
[2019-09-23] MEDS: SINGULAIR PO SCH (09:38)
[2019-09-23] MEDS: COREG PO SCH ×2 (09:38→21:08)
[2019-09-23] MEDS: FLOMAX PO SCH ×2 (09:39→21:08)
--- NOTE | 2019-09-23 12:05 | PROGRESS NOTE ---
DATE: 09/23/2019 SUBJECTIVE: The patient is still confused. He is able to say his name and part of his date of , he is able to say his 's name, he is oriented to time or place, we will try to remove the restraints today to see how he does. Vital signs are stable as well as laboratory. OBJECTIVE: Vital Signs: Temperature 98.9 degrees, pulse 101, respiratory rate 16, blood pressure 136/79, oxygen saturation 100% on 2 L of nasal cannula. HEENT: Head normocephalic. No trauma. PERRLA. Neck: Supple. No JVD. No masses. Central trachea. Chest: Clear to auscultation. No wheezing. There is some crepitus at the bases. Abdomen: Soft, nontender, nondistended. Extremities: His right lower extremity is covered with a dressing and he has a wound VAC. It looks like he has good granulation tissue. Surgery Department on board. We will continue with same management. Neurological Examination: The patient is awake. He is following commands on and off. He has some tremors. He is oriented to person and he was able to say part of his date of and he was able to say his 's name. LABORATORY: WBC 11.5, hemoglobin 9.9, hematocrit 32.6, platelets 199,000. Sodium 140, potassium 4.2, chloride 106, bicarbonate 26, BUN 19, creatinine 0.8, glucose 110, calcium 9.3. This lab work is from 09/22/2019. No new lab work today. ASSESSMENT AND PLAN: 1. Clostridium difficile colitis, he will complete the treatment for Clostridium difficile colitis today. He is on p.o. vancomycin. The diarrhea resolved. He seems to be better. 2. Urinary tract infection. Continue with antibiotics and Javier catheter in place, which initially was placed by Dr. Lewis due to retention. 3. Encephalopathy, multifactorial. I do believe he has a baseline dementia. 4. History of atrial fibrillation. He has been on anticoagulation before, which has been stopped due to this blood clot and confusion and high risk of falling. 5. 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 His wound is covered with a dressing and wound VAC. I do not see any secretion, seems to be healing fine. 6. History of congestive heart failure with an ejection fraction of 45% to 50%, seems to be euvolemic. Continue with same management. 7. Likely dementia, which I believe is quite severe. 8. History of chronic obstructive pulmonary disease not in exacerbation. 9. Benign prostatic hypertrophy. Continue with Flomax. He does have generalized weakness and physical deconditioning. Physical Therapy and Occupational Therapy on board. I have requested a COVID-19 test to be able to send this patient to a rehab/alf, it has been difficult because he has been on restraints, I have stopped the restraints today to see how he does. He is still confused though and he has been pulling out lines and catheter as well. Again, I will remove the restraints today and observe. cc: James Gotti MD
[2019-09-23] MEDS: ZOCOR PO SCH (21:07)
[2019-09-23] MEDS: REMERON PO SCH (21:07)
[2019-09-24] MEDS: MYCOSTATIN SUSP PO SCH ×5 (00:39→22:22)
[2019-09-24] MEDS: KEFZOL 1 GM/D5W 1 GM/50 ML IVPB IV SCH ×3 (00:40→16:19)
[2019-09-24] MEDS: FLOMAX PO SCH ×2 (08:24→22:21)
[2019-09-24] MEDS: COREG PO SCH ×2 (08:24→22:21)
[2019-09-24] MEDS: SEROQUEL PO SCH ×2 (08:24→22:23)
[2019-09-24] MEDS: SINGULAIR PO SCH (08:24)
[2019-09-24 08:32] LABS: HEMATOCRIT 32.6 % (42.0-52.0); MCH 30.9 PG (27-31); MCHC 30.7 g/dL (33-37); MCV 100.6 FL (81-99); MPV 13.2 FL (7.4-10.4); RBC 3.24 XMIL (4.7-6.1); RDW 14.6 % (11.5-14.5); WBC 10.54 X1000 (4.8-10.8)
[2019-09-24 09:03] LABS: AGAP 10; BUN 20 mg/dL (8-22); CALCIUM 9.2 mg/dL (8.8-10.2); CHLORIDE 102 mmol/L (98-107); COSMO 282; CREATININE 0.8 mg/dL (0.7-1.2); ESTIMATED GFR > 60; GLUCOSE 107 mg/dL (70-104); POTASSIUM 4.4 mmol/L (3.5-5.1); SODIUM 140 mmol/L (136-145); TCO2 28 mmol/L (25-35)
--- NOTE | 2019-09-24 11:03 | PROGRESS NOTE ---
DATE: 09/24/2019 SUBJECTIVE: The patient seems to be doing a whole lot better today. He seems to be more awake. He is eating by himself. He is still not oriented to time or place, but, he is not agitated. Vital signs are stable as well as laboratory. OBJECTIVE: Vital Signs: Temperature 98.8 degrees, pulse 95, respiratory rate 16, blood pressure 130/87, oxygen saturation 96 on room air. HEENT: Head normocephalic. No trauma. PERRLA. Neck: Supple. No JVD. No masses. Central trachea. Chest: Clear to auscultation. No wheezing. There is some crepitus at the bases. Abdomen: Soft, nontender, nondistended. No hepatosplenomegaly. Extremities: Right lower extremity is covered with a dressing, and he has a wound VAC. It looks like he has good granulation tissue. Surgery Department on board. We will continue with same management. Neurological: The patient is awake, he is following commands on and off. He is eating by himself. He has some mild tremors. He is oriented to person. He was able to say his date of , but he was not oriented to time or place. LABORATORY: WBC 10.5, hemoglobin 10, hematocrit 32.6, platelets 178,000. Sodium 140, potassium 4.4, chloride 102, bicarbonate 28, BUN 20, creatinine 0.8, glucose 107. Calcium 9.2. ASSESSMENT AND PLAN: 1. Clostridium difficile colitis, already treated. 2. Urinary tract infection. Continue with antibiotics. 3. Urinary retention, continue with Javier catheter in place. He will need to follow up with Dr. Lewis as an outpatient. Initially, this catheter has been placed by Dr. Lewis as an outpatient as well. 4. Encephalopathy, multifactorial. I do believe this patient has a baseline dementia. 5. History of atrial fibrillation. He has been on anticoagulation before, which has been stopped due to the hematoma that has been drained already. Because of his confusion and weakness, he is a high risk patient for falling. 6. Right lower extremity calf tissue necrosis, with underlying subcutaneous hematoma, status post excisional debridement and evacuation of the hematoma of the right calf on 09/16/2019. His wound is covered with a dressing and a wound VAC. I do not see any secretion, seems to be healing fine, good granulation tissue. 7. History of congestive heart failure, with an ejection fraction of 45 to 50 percent, seems to be euvolemic. Continue with same management. 8. Likely dementia. Aware. 9. History of chronic obstructive pulmonary disease, not in exacerbation. 10. BPH. Continue with Flomax. 11. His COVID-19 has been negative. He has been out of restraints for the past 24 hours. If tomorrow this patient is about the same, I will go ahead and discharge him to a rehab center, he seems to be doing good today. cc: James Gotti MD
[2019-09-24] MEDS: HALDOL IV PRN (11:15)
[2019-09-24] MEDS: CLINIMIX E 4.25%-5% SOLUTION 1,000 ML IV SCH (13:46)
[2019-09-24] MEDS ORDERED: GEODON IM ONE (15:16)
[2019-09-24] MEDS ORDERED: STERILE WATER INJ. INJ ONE (15:16)
[2019-09-24] MEDS: ZOCOR PO SCH (22:21)
[2019-09-24] MEDS: REMERON PO SCH (22:22)
[2019-09-25] MEDS: KEFZOL 1 GM/D5W 1 GM/50 ML IVPB IV SCH ×3 (00:25→16:11)
[2019-09-25] MEDS: HALDOL IV PRN (03:40)
[2019-09-25] MEDS: SINGULAIR PO SCH (08:11)
[2019-09-25] MEDS: SEROQUEL PO SCH (08:11)
[2019-09-25] MEDS: FLOMAX PO SCH (08:11)
[2019-09-25] MEDS: COREG PO SCH (08:12)
[2019-09-25] MEDS: MYCOSTATIN SUSP PO SCH ×3 (08:12→16:12)
--- NOTE | 2019-09-25 10:33 | DISCHARGE SUMMARY ---
` PLEASE DELETE MTDD
--- NOTE | 2019-09-25 11:07 | DISCHARGE SUMMARY ---
ADMISSION DATE: 09/12/2019 DISCHARGE DATE: 09/25/2019 ADMISSION DIAGNOSES: 1. Urinary tract infection, Pseudomonas. 2. History of urinary retention with indwelling Javier catheter. 3. Encephalopathy. 4. Clostridium difficile. 5. Right lower extremity wound with hematoma. 6. History of atrial fibrillation. 7. History of chronic obstructive pulmonary disease, on home O2. 8. History of congestive heart failure. DISCHARGE DIAGNOSES: 1. Clostridium difficile colitis. Treatment completed. 2. Urinary tract infection, Pseudomonas. Antibiotic treatment completed with negative urine culture 09/13/2019. 3. Urinary retention with indwelling Javier catheter. 4. Encephalopathy. 5. History of atrial fibrillation, on no anticoagulation at this time due to hematoma to right lower extremity. 6. 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 7. History of congestive heart failure with an ejection fraction of 45 to 50 percent. 8. Likely dementia. 9. Chronic obstructive pulmonary disease, on home O2 with no exacerbation. 10. Benign prostatic hypertrophy. DIAGNOSTICS: 1. 09/12/2019, foot x-ray revealed extensive pedal edema. 2. Left leg x-ray. Bones are intact and normally aligned. Soft tissues are clear. 3. Right lower extremity x-ray, nonspecific subcutaneous edema. 4. 09/21/2019, chest x-ray revealed mild pulmonary edema. PROCEDURES: 1. 09/16/2019, excisional debridement, right calf, 7 x 7 x 3 cm, evacuation of hematoma, right calf. CONSULTANTS: Dr. Davion Dwyer, General Surgery. MICROBIOLOGY: 1. Blood cultures x2 revealed no growth after 5 days. 2. COVID-19 PCR revealed none detected on 09/21/2019. 3. COVID-19 on 09/24/2019 pending. HOSPITAL COURSE: Mr. Godoy is an 88-year-old gentleman who had previously had a urinary tract infection and had urinary retention. Indwelling Javier was placed. Mr. Godoy, according to the chart became, more confused, took scissors and cut his Javier. Therefore, he presented to the emergency room for the catheter to be changed out. It appears while in the emergency room, he was found to have a wound to his right lower extremity that subsequently revealed a subcutaneous hematoma there and he underwent debridement with evacuation of the hematoma on September 15. He has been followed by Dr. Dwyer with General Surgery. At this time, wound VAC is being continued and will be continued into rehab. He has had some confusion. He is oriented to himself and family members. He is not oriented to time or place. He did require restraints during the hospitalization. He has been out of restraints for greater than 48 hours and he is not agitated at this time. Before coming to the hospital, he had been diagnosed with a Pseudomonas urinary tract infection and had been receiving antibiotics. We did continue these and he did receive 9 days of antibiotics, and he will be discharged on none as he has completed treatment. In regards to his urinary retention, the Javier catheter will be left in place and he will follow up with Dr. Lewis on an outpatient basis. We will continue his Flomax. He does have a history of COPD on home O2. Thankfully, he did not have an exacerbation and he remained stable. He also has a history of congestive heart failure and thankfully, again, he remained stable with this. He did test positive for Clostridium difficile. He was treated and he received his last dose of vancomycin on 09/24/2019. DISCHARGE VITAL SIGNS: Blood pressure is 144/76 with a heart rate of 86, respirations 18, temperature 98.9 degrees oral with room air saturations 98%. DISCHARGE PHYSICAL EXAMINATION: Cardiovascular: Regular rate and rhythm. S1 and S2 appreciated. Pulmonary: Breath sounds are clear, diminished at the bases. Chest rises and falls symmetric with respiration. Gastrointestinal: Abdomen is soft, nontender, nondistended with bowel sounds in all 4 quadrants. Neurologic: He is awake, he is alert. He is oriented to person. He is not oriented to time or place. Skin: Warm and dry. Wound VAC is intact to right lower extremity. Genitourinary: Javier is patent to bedside bag. DISCHARGE MEDICATIONS: 1. Xarelto 2. Seroquel 25 mg p.o. b.i.d. 3. MiraLAX 17 g p.o. daily. 4. Remeron 7.5 p.o. at bedtime. 5. Furosemide 20 mg p.o. daily. 6. Carvedilol 25 p.o. b.i.d. 7. Tylenol 650 p.o. q.6 hours p.r.n. 8. Flomax 0.4 p.o. b.i.d. 9. Zocor 20 mg p.o. at bedtime. FOLLOWUP: 1. Dr. Dima Lewis 10/09/2019 at 8:[address] Dwyer in 3 weeks. They need to call to make an appointment. DISCHARGE DISPOSITION: He is being discharged in transfer to rehab in stable condition. TIME SPENT: This is a greater than 30 minute discharge. Dictated by DEVI Romero for James Gotti MD cc: DEVI Romero MD MTDD
[2019-09-25] MEDS: CLINIMIX E 4.25%-5% SOLUTION 1,000 ML IV SCH (13:06)
[2019-09-25 14:59] VITALS: BP 103/64
== END 2019-09-25 19:03 | DRG 673 ==
LOC: ED 18:23 → SUATTDRO 22:36 → 3N 22:36
PROVIDERS: ATTEND Internal Medicine